=== PATIENT | male | born 1950 | race Caucasian/White ===

== ENCOUNTER 2017-02-26 07:28 | Inpatient (IN) | payer BC, OTHER ==
[~2017-02-26] VITALS: Ht 188 cm; Wt 128.0 kg
[2017-02-26] VITALS (7 sets, daily range): BP systolic 123–151; BP diastolic 73–98; PULSE 71–90; TEMP 36.3–36.5; O2SAT 96–97; Ht 188 cm; Wt 128.0 kg
[2017-02-26] MEDS ORDERED: SODIUM CHLORIDE 0.9% 1000ML 1,000 ML IV ONE (07:33)
--- NOTE | 2017-02-26 07:36 | EMERGENCY ROOM VISIT NOTE ---
History Report prepared by Shorty: Deedee Bach Under the Supervision of: Dr. Ced Hale M.D. First contact with patient: 07:29 Chief Complaint: ILLNESS Stated Complaint: ILLNESS History of Present Illness The patient is a 66 year old male who presents to the Emergency Room with complaints of a persistent illness that began prior to arrival. Per EMS, the patient had a colonoscopy done two days ago. EMS reports that the patient was found shivering in his bathroom by his . The patient states that he has been experiencing dizziness and lightheadedness. He states that he has been feeling bloated. The patient denies any history of smoking or heart disease. Source of History: patient, EMS Onset: prior to arrival Position: other (global) Quality: other (illness) Timing: other (persistent) Note: Associated Symptoms: dizziness and lightheadedness, shivering Review of Systems See HPI for pertinent positives & negatives. A total of 10 systems reviewed and were otherwise negative. Past Medical & Surgical Surgical Problems: (1) H/O artificial lens replacement (2) H/O colonoscopy (3) H/O colonoscopy Family History No pertinent family history stated. Social History Marital Status: Housing Status: lives with significant other Occupation Status: employed Current/Historical Medications No Active Prescriptions or Reported Meds Allergies Coded Allergies: No Known Allergies (Verified , 02/26/17) Physical Exam Vital Signs Date Time Temp Pulse Resp B/P (MAP) Pulse Ox O2 Delivery O2 Flow Rate FiO2 02/26/17 10:13 70 19 99 02/26/17 09:58 71 21 96 02/26/17 09:43 71 16 96 02/26/17 09:35 68 18 127/83 98 Room Air 02/26/17 09:35 127/83 02/26/17 09:28 72 15 02/26/17 09:13 69 15 02/26/17 08:58 72 21 90 02/26/17 08:43 74 24 95 02/26/17 08:31 101/66 02/26/17 08:31 74 18 101/66 98 Room Air 02/26/17 08:13 71 11 95 02/26/17 07:58 76 17 93 02/26/17 07:43 78 19 02/26/17 07:39 80 02/26/17 07:38 36.4 82 20 107/65 95 Room Air 02/26/17 07:37 95 Room Air 02/26/17 07:34 107/65 Physical Exam GENERAL: Patient is a pale, ill appearing, diaphoretic male. HEAD: Normocephalic atraumatic EYES: Ocular movements intact pupils equal and react to light OROPHARYNX mucous membranes are moist no exudates present no erythema or edema present NECK: Supple no nuchal rigidity CHEST: Good equal expansion LUNGS: Clear and equal to auscultation CARDIAC: Normal S1 and S2 ABDOMEN: Soft nontender no guarding BACK: No CVA tenderness EXTREMITIES: No pain upon palpation normal muscle strength in all groups no clubbing cyanosis or edema NEURO: Patient is following commands and answering questions appropriately. Alert and oriented x3 Cranial Nerves 2-12 grossly intact Medical Decision & Procedures ER Provider Diagnostic Interpretation: Radiology results as stated below per my review and radiologist interpretation: CHEST ONE VIEW PORTABLE CLINICAL HISTORY: Sepsis dyspnea COMPARISON STUDY: No previous studies for comparison. FINDINGS: The bones soft tissues and hemidiaphragms are normal. The cardiomediastinal silhouette is normal. The lungs are clear. The pulmonary vasculature is normal. Poorly defined mild bibasilar parenchymal infiltrative change. IMPRESSION: Poorly defined bibasilar parenchymal infiltrate. The above report was generated using voice recognition software. It may contain grammatical, syntax or spelling errors. Electronically signed by: Dereje Gore M.D. 02/26/2017 8:17 AM Dictated Date/Time: 02/26/2017 8:16 AM ADDENDUM Addendum: Upon further review, note is made of slight indistinctness of the anterior wall of the proximal transverse colon with possible minimal pericolonic infiltration. There is no free air. A colonic injury is considered unlikely but would be difficult to exclude, particularly if recent intervention at this location. If progressive abdominal pain, short-term follow-up CT is recommended. Findings discussed with Dr. Hale at time of dictation. Electronically signed by: Sheldon Haynes M.D. 02/26/2017 9:45 AM Dictated Date/Time: 02/26/2017 9:[address] OF THE ABDOMEN AND PELVIS WITH CONTRAST CLINICAL HISTORY: Colonoscopy. Fever. COMPARISON STUDY: None. TECHNIQUE: Following IV administration of 93 mL of Optiray-320, axial images of the abdomen and pelvis were obtained from the lung bases to the proximal femurs. Images were reviewed in the axial, sagittal, and coronal planes. IV contrast was administered without complication. A dose lowering technique was utilized adhering to the principles of ALARA. CT DOSE: 1166.87 mGy.cm FINDINGS: Visualized portions of the lower chest demonstrate a trace pericardial effusion. There are multiple old right-sided rib fractures. No pneumatosis, free air or portal venous gas is noted. Nodularity of both adrenal glands is benign. The liver, spleen and pancreas are unremarkable as is the right kidney. Note is made of a 2.6 cm water attenuation left renal lesion consistent with a cyst. A few subcentimeter left renal lesions are too small to characterize. Submucosal fat deposition of the colon is chronic. There is an endoscopic clip within the cecum. The appendix is normal. There is colonic diverticulosis without evidence for acute diverticulitis. The bladder is collapsed. No suspicious osseous lesions are present. Note is made of a bilobed infrarenal abdominal aortic aneurysm. The superior component measures 5.3 x 4.4 cm and the inferior component measures 4.8 x 4 cm. There is no evidence for rupture. There is extensive atherosclerotic plaque of the abdominal aorta and branch vessels. Note is made of a 9.3 x 5.2 x 3 cm fluid collection along the fascia of the lateral left thigh. This is likely chronic. There is no lymphadenopathy. IMPRESSION: 1. No acute process within the abdomen or pelvis. No free air. Endoscopic clip within the cecum. Extensive submucosal fat deposition which suggests chronic inflammation. No free air. 2. Bilobed infrarenal abdominal aortic aneurysm. Superior component measures 5.3 x 4.4 cm and inferior component measures 4.8 x 4 cm. No rupture. 3. 9.3 x 5.2 x 3 cm hypodensity along the fascia of the lateral left thigh. This is indeterminate although likely reflects a fluid collection and may be chronic, related to previous trauma. 4. Trace pericardial effusion. Electronically signed by: Sheldon Haynes M.D. 02/26/2017 8:59 AM Dictated Date/Time: 02/26/2017 8:28 AM Laboratory Results 02/26/17 07:34 Red Blood Count 3.85, Mean Corpuscular Volume 94.3, Mean Corpuscular Hemoglobin 31.7, Mean Corpuscular Hemoglobin Concent 33.6, Mean Platelet Volume 11.7, Neutrophils (%) (Auto) 65.2, Lymphocytes (%) (Auto) 26.6, Monocytes (%) (Auto) 6.4, Eosinophils (%) (Auto) 0.9, Basophils (%) (Auto) 0.3, Neutrophils # (Auto) 9.89, Lymphocytes # (Auto) 4.03, Monocytes # (Auto) 0.97, Eosinophils # (Auto) 0.13, Basophils # (Auto) 0.05 02/26/17 07:34 Test 02/26/17 07:33 02/26/17 07:34 02/26/17 08:04 02/26/17 08:08 White Blood Count 15.16 K/uL (4.8-10.8) Red Blood Count 3.85 M/uL (4.7-6.1) Hemoglobin 12.2 g/dL (14.0-18.0) Hematocrit 36.3 % (42-52) Mean Corpuscular Volume 94.3 fL (80-100) Mean Corpuscular Hemoglobin 31.7 pg (25-34) Mean Corpuscular Hemoglobin Concent 33.6 g/dl (32-36) Platelet Count 289 K/uL (130-400) Mean Platelet Volume 11.7 fL (7.4-10.4) Neutrophils (%) (Auto) 65.2 % Lymphocytes (%) (Auto) 26.6 % Monocytes (%) (Auto) 6.4 % Eosinophils (%) (Auto) 0.9 % Basophils (%) (Auto) 0.3 % Neutrophils # (Auto) 9.89 K/uL (1.4-6.5) Lymphocytes # (Auto) 4.03 K/uL (1.2-3.4) Monocytes # (Auto) 0.97 K/uL (0.11-0.59) Eosinophils # (Auto) 0.13 K/uL (0-0.5) Basophils # (Auto) 0.05 K/uL (0-0.2) RDW Standard Deviation 50.0 fL (36.4-46.3) RDW Coefficient of Variation 14.7 % (11.5-14.5) Immature Granulocyte % (Auto) 0.6 % Immature Granulocyte # (Auto) 0.09 K/uL (0.00-0.02) Prothrombin Time 11.2 SECONDS (9.0-12.0) Prothromb Time International Ratio 1.0 (0.9-1.1) Activated Partial Thromboplast Time 28.8 SECONDS (21.0-31.0) Partial Thromboplastin Ratio 1.1 Est Creatinine Clear Calc Drug Dose 67.1 ml/min Estimated GFR () 53.6 Estimated GFR (Non- 46.3 BUN/Creatinine Ratio 18.1 (10-20) Estimated Average Glucose 117 mg/dl Hemoglobin A1c 5.7 % (4.5-5.6) Calcium Level 8.6 mg/dl (8.5-10.1) Total Bilirubin 0.3 mg/dl (0.2-1) Aspartate Amino Transf (AST/SGOT) 13 U/L (15-37) Alanine Aminotransferase (ALT/SGPT) 24 U/L (12-78) Alkaline Phosphatase 53 U/L (45-117) Total Creatine Kinase 84 U/L (39-308) Total Protein 6.7 gm/dl (6.4-8.2) Albumin 3.1 gm/dl (3.4-5.0) Globulin 3.6 gm/dl (2.5-4.0) Albumin/Globulin Ratio 0.9 (0.9-2) Procalcitonin 0.07 ng/ml (0-0.5) Bedside Lactic Acid Venous 1.41 mmol/L (0.90-1.70) Bedside Hemoglobin 11.9 g/dl (14.0-18.0) Bedside Hematocrit 35 % (42-52) Bedside Sodium 139 mEq/L (135-144) Bedside Potassium 4.4 mEq/L (3.3-5.0) Bedside Chloride 104 mEq/L (101-112) Bedside Total CO2 22 mEq/l (24-31) Anion Gap 18.0 mmol/L (16-25) Bedside Blood Urea Nitrogen 27 mg/dl (7-18) Bedside Creatinine 1.5 mg/dl (0.6-1.3) Bedside Glucose (other) 167 mg/dl (70-99) Bedside Ionized Calcium (Kiah) 1.18 mmol/l (1.12-1.32) Test 02/26/17 09:50 Influenza Type A (RT-PCR) Neg for Influ A (NEG) Influenza Type B (RT-PCR) Neg for Influ B (NEG) Labs reviewed by ED physician. Medications Administered Medications (Trade) Dose Ordered Sig/Linda Route Start Time Stop Time Status Last Admin Dose Admin Sodium Chloride 1,000 ml @ 999 mls/hr Q1H1M ONCE IV 02/26/17 07:33 02/26/17 08:33 DC 02/26/17 07:59 999 MLS/HR Vancomycin HCl 1000 mg/Sodium Chloride 270 ml @ 125 mls/hr NOW STAT IV 02/26/17 08:18 02/26/17 10:27 DC 02/26/17 08:46 125 MLS/HR Sodium Chloride 1,000 ml @ 999 mls/hr Q1H1M STAT IV 02/26/17 08:21 02/26/17 09:21 DC 02/26/17 08:46 999 MLS/HR Cefepime HCl 2000 mg/Syringe 20 ml @ 5 mls/min TODAY@0818 IV 02/26/17 08:18 02/26/17 08:35 DC 02/26/17 08:46 5 MLS/MIN Nicotine (Nicoderm Cq 21MG Patch) 1 patch NOW STAT TD 02/26/17 09:21 02/26/17 09:22 DC 02/26/17 09:35 1 PATCH ECG Indication: other (illness) Rate (beats per minute): 80 Rhythm: normal sinus Findings: no acute ischemic change, prolonged QT, no ectopy ED Course 0730: Past medical records reviewed. The patient was evaluated in room B12B. A complete history and physical examination was performed. 0733: Ordered Sodium Chloride 1000 ml @ 999 mls/hr IV. 0818: Ordered Cefepime HCl 2000 mg/Syringe 20 ml @ 5 mls/min IV, Vancomycin HCl 1000 mg/Sodium Chloride 270 ml @ 125 mls/hr IV. 0821: Ordered Sodium Chloride 1000 ml @ 999 mls/hr IV. 0915: I reevaluated the patient and he is resting. I discussed the test results with him and I discussed the treatment plan. He verbalized complete understanding and agreement. He is going to be evaluated for further treatment. 0921: Ordered Nicotine 1 patch TD. 0933: I discussed the patients case with Phi Huggins. She is going to evaluate the patient for further treatment. 0944: I spoke to Dr. Haynes, Radiology regarding the patient. 0953: I discussed the patients case with Bonnie Tyson. She states that she will come see the patient. Medical Decision Differential diagnosis: Etiologies such as appendicitis, diverticulitis, PUD, biliary pathology, UTI, pancreatitis, obstruction, mesenteric ischemia, aortic pathology, infections, inflammatory bowel disease, renal colic, as well as others were entertained. This is a 66-year-old male who presents emergency department complaining of syncope. Upon arrival to emergency department the patient is pale in appearance and diaphoretic. Based on these findings an IV was established, patient given normal saline bolus and started on antibiotics. The patient has multiple comorbidities including a AAA. Repeat examination after the fluid administration revealed improvement in the patient's symptoms. I did discuss the case with the patient's hospitalist service as well as the gastroenterology service due to the patient's recent colonoscopy. Patient was in agreement with the treatment plan. Medication Reconcilliation Current Medication List: was personally reviewed by me Blood Pressure Screening Patient's blood pressure: Normal blood pressure Blood pressure disposition: Did not require urgent referral Consults Time Called: 919 Consulting Physician: Phi Huggins Returned Call: 09 I discussed the patients case with Phi Huggins. She is going to evaluate the patient for further treatment. Additional Consults: Time Called: 944 Consulted Physician: Bonnie Tyson Returned Call: 0900 Additional Comments: I discussed the patients case with Bonnie Tyson. She states that she will come see the patient. Impression Primary Impression: Pneumonia Additional Impression: Syncope Scribe Attestation The scribe's documentation has been prepared under my direction and personally reviewed by me in its entirety. I confirm that the note above accurately reflects all work, treatment, procedures, and medical decision making performed by me. Departure Information Dispostion Being Evaluated By Hospitalist Prescriptions No Active Prescriptions or Reported Meds Problem Qualifiers Primary Impression: Pneumonia Pneumonia type: due to unspecified organism Laterality: unspecified laterality Lung location: unspecified part of lung Qualified Codes: J18.9 - Pneumonia, unspecified organism Additional Impression: Syncope Syncope type: unspecified Qualified Codes: R55 - Syncope and collapse
[2017-02-26] MEDS ORDERED: OPTIRAY 320 IV PRN (07:45)
[2017-02-26 08:12] LABS: BASO % 0.3 %; BASO ABS # 0.05 K/uL (0-0.2); COMPLETE YES; EOS % 0.9 %; HEMATOCRIT 36.3 % (42-52); IG% 0.6 %; LYMPH % 26.6 %; LYMPH ABS # 4.03 K/uL (1.2-3.4); MEAN CELL VOLUME 94.3 fL (80-100); MEAN CORPUSCULAR HEMOGLOBIN 31.7 pg (25-34); MEAN CORPUSCULAR HGB CONC 33.6 g/dl (32-36); MEAN PLATELET VOLUME 11.7 fL (7.4-10.4); MONO % 6.4 %; NEUT % 65.2 %; PLATELET COUNT 289 K/uL (130-400); RED BLOOD COUNT 3.85 M/uL (4.7-6.1); WHITE BLOOD COUNT 15.16 K/uL (4.8-10.8)
[2017-02-26] MEDS ORDERED: CEFEPIME IV 2,000 MG in SYRINGE 7.5 ML IV SCH (08:18)
[2017-02-26] MEDS ORDERED: CEFEPIME IV 2,000 MG in DEXTROSE 5% 100ML 100 ML IV STA (08:18)
[2017-02-26] MEDS ORDERED: VANCOMYCIN INJ 1,000 MG in SODIUM CHLORIDE 0.9% 250ML 250 ML IV STA (08:18)
--- NOTE | 2017-02-26 08:18 | DIAGNOSTIC IMAGING REPORT ---
CHEST ONE VIEW PORTABLE CLINICAL HISTORY: Sepsis dyspnea COMPARISON STUDY: No previous studies for comparison. FINDINGS: The bones soft tissues and hemidiaphragms are normal. The cardiomediastinal silhouette is normal. The lungs are clear. The pulmonary vasculature is normal. Poorly defined mild bibasilar parenchymal infiltrative change. IMPRESSION: Poorly defined bibasilar parenchymal infiltrate. The above report was generated using voice recognition software. It may contain grammatical, syntax or spelling errors. Electronically signed by: Dereje Gore M.D. 02/26/2017 8:17 AM Dictated Date/Time: 02/26/2017 8:16 AM
[2017-02-26 08:21] LABS: ISTAT CREATININE 1.5 mg/dl (0.6-1.3); ISTAT HEMOGLOBIN 11.9 g/dl (14.0-18.0); ISTAT IONIZED CALCIUM 1.18 mmol/l (1.12-1.32)
[2017-02-26] MEDS ORDERED: SODIUM CHLORIDE 0.9% 1000ML 1,000 ML IV STA (08:21)
[2017-02-26 08:23] LABS: PARTIAL THROMBOPLASTIN RATIO 1.1; PROTHROMBIN TIME (PATIENT) 11.2 SECONDS (9.0-12.0)
[2017-02-26 08:30] LABS: ALT/SGPT 24 U/L (12-78); BLOOD UREA NITROGEN 28 mg/dl (7-18); BUN/CREATININE RATIO 18.1 (10-20); CALCIUM 8.6 mg/dl (8.5-10.1); CARBON DIOXIDE 25 mmol/L (21-32); CHLORIDE 106 mmol/L (98-107); CREATININE 1.56 mg/dl (0.60-1.40); GLUCOSE 162 mg/dl (70-99); POTASSIUM 4.4 mmol/L (3.5-5.1); SODIUM 139 mmol/L (136-145)
[2017-02-26 08:35] LABS: ALB/GLOB RATIO 0.9 (0.9-2); ALKALINE PHOSPHATASE 53 U/L (45-117); AST/SGOT 13 U/L (15-37)
--- NOTE | 2017-02-26 09:00 | DIAGNOSTIC IMAGING REPORT ---
ADDENDUM Addendum: Upon further review, note is made of slight indistinctness of the anterior wall of the proximal transverse colon with possible minimal pericolonic infiltration. There is no free air. A colonic injury is considered unlikely but would be difficult to exclude, particularly if recent intervention at this location. If progressive abdominal pain, short-term follow-up CT is recommended. Findings discussed with Dr. Hale at time of dictation. Electronically signed by: Sheldon Haynes M.D. 02/26/2017 9:45 AM Dictated Date/Time: 02/26/2017 9:[address] OF THE ABDOMEN AND PELVIS WITH CONTRAST CLINICAL HISTORY: Colonoscopy. Fever. COMPARISON STUDY: None. TECHNIQUE: Following IV administration of 93 mL of Optiray-320, axial images of the abdomen and pelvis were obtained from the lung bases to the proximal femurs. Images were reviewed in the axial, sagittal, and coronal planes. IV contrast was administered without complication. A dose lowering technique was utilized adhering to the principles of ALARA. CT DOSE: 1166.87 mGy.cm FINDINGS: Visualized portions of the lower chest demonstrate a trace pericardial effusion. There are multiple old right-sided rib fractures. No pneumatosis, free air or portal venous gas is noted. Nodularity of both adrenal glands is benign. The liver, spleen and pancreas are unremarkable as is the right kidney. Note is made of a 2.6 cm water attenuation left renal lesion consistent with a cyst. A few subcentimeter left renal lesions are too small to characterize. Submucosal fat deposition of the colon is chronic. There is an endoscopic clip within the cecum. The appendix is normal. There is colonic diverticulosis without evidence for acute diverticulitis. The bladder is collapsed. No suspicious osseous lesions are present. Note is made of a bilobed infrarenal abdominal aortic aneurysm. The superior component measures 5.3 x 4.4 cm and the inferior component measures 4.8 x 4 cm. There is no evidence for rupture. There is extensive atherosclerotic plaque of the abdominal aorta and branch vessels. Note is made of a 9.3 x 5.2 x 3 cm fluid collection along the fascia of the lateral left thigh. This is likely chronic. There is no lymphadenopathy. IMPRESSION: 1. No acute process within the abdomen or pelvis. No free air. Endoscopic clip within the cecum. Extensive submucosal fat deposition which suggests chronic inflammation. No free air. 2. Bilobed infrarenal abdominal aortic aneurysm. Superior component measures 5.3 x 4.4 cm and inferior component measures 4.8 x 4 cm. No rupture. 3. 9.3 x 5.2 x 3 cm hypodensity along the fascia of the lateral left thigh. This is indeterminate although likely reflects a fluid collection and may be chronic, related to previous trauma. 4. Trace pericardial effusion. Electronically signed by: Sheldon Haynes M.D. 02/26/2017 8:59 AM Dictated Date/Time: 02/26/2017 8:28 AM
[2017-02-26] MEDS ORDERED: NICOTINE 21 MG/24 HR TDSY TD STA (09:21)
[2017-02-26] MEDS ORDERED: ONDANSETRON INJ 2 MG/ML 2 ML VIAL IV PRN (10:30)
[2017-02-26] MEDS ORDERED: ACETAMINOPHEN 325 MG TAB PO PRN (10:30)
[2017-02-26] MEDS ORDERED: PIPERACILL/TAZOBAC CONSULT ACTIVE PRN (10:45)
[2017-02-26] MEDS ORDERED: VANCOMYCIN CONSULT ACTIVE PRN (10:45)
[2017-02-26 10:56] LABS: INFLUENZA A PCR Neg for Influ A (NEG); INFLUENZA B PCR Neg for Influ B (NEG)
--- NOTE | 2017-02-26 10:56 | DIAGNOSTIC IMAGING REPORT ---
HEAD WITHOUT CONTRAST (CT) CLINICAL HISTORY: 66 years-old Male with syncope. Acute syncope TECHNIQUE: Multiple axial CT images of the head were obtained without contrast. A dose lowering technique was utilized adhering to the principles of ALARA. CT DOSE: 634.23 mGy.cm COMPARISON: None. FINDINGS: No acute intracranial hemorrhage, midline shift, intracranial mass, hydrocephalus, territorial ischemia or abnormal extra-axial collection. Mild brain atrophy. Mild chronic microvascular ischemic changes are suggested. The calvarium is intact. Trace right mastoid effusion. No left mastoid effusion. Mild rightward bowing and spurring of nasal septum. Mild mucosal thickening of the left maxillary and ethmoid sinuses. Prior bilateral cataract repair. IMPRESSION: No acute intracranial abnormality. The above report was generated using voice recognition software. It may contain grammatical, syntax or spelling errors. Electronically signed by: Thomas Ellis M.D. 02/26/2017 10:55 AM Dictated Date/Time: 02/26/2017 10:51 AM
--- NOTE | 2017-02-26 11:06 | Gastrointestinal Consultation ---
Gastrointestinal Consultation Date of Consultation: Feb 26, 2017 Attending Physician: Leroy Consulting Physician: Herman Reason for Consultation: GIB, hx polypectomy on colonoscopy History of Present Illness Patient is a 66 year old male w/ history HTN, AAA who presents through the ED following a syncopal event. Pt was seen and evaluated, chart reviewed. is at bedside. Pt notes colonoscopy 02/21 for colon CA screening. Found to have numerous polyps, removed w/ hot snare and clip placement x 2. Also with large polyp (TVA vs malignancy) biopsy pending, tattooed. He notes since colonoscopy, he has been having abdominal pressure and rectal bleeding. Was having formed stools x 2 days, with some BRB and had been feeling well. Sunday, bleeding worsened, associated with some clots, and he noted some lightheadedness, dizziness, fever, chills. This AM w/ syncopal episode in bathroom. notes a lot of BRBPR. IVF and ABX in the ED w/ resolution of fever, chills, lightheadedness, dizziness. Last episodes of bleeding was prior to arrival. On ED arrival, he was hypotensive, w/ pulse 82. Afebrile. WBC 15, H&H 12&35. 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 LFTs ok. 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 Cannot be removed endoscopically. Many 4-10 mm polyps in the transverse colon, removed with hot snare, clip placed. Three 4-9 mm polyps in transverse colon removed with not snare, clip placed. One 18 mm polyp in the rectum. One 7 mm polyp removed from rectum. Repeat colonoscopy due to fair prep , refer to general surgery when pathology returns Chest XR 02/26/17: The bones soft tissues and hemidiaphragms are normal. The cardiomediastinal silhouette is normal. The lungs are clear. The pulmonary vasculature is normal. Poorly defined mild bibasilar parenchymal infiltrative change. CT ABD/Pelvis 02/26/17: No acute process within the abdomen or pelvis. No free air. Endoscopic clip within the cecum. Extensive submucosal fat deposition which suggests chronic inflammation. No free air. Bilobed infrarenal abdominal aortic aneurysm. Superior component measures 5.3 x 4.4 cm and inferior component measures 4.8 x 4 cm. No rupture. 3. 9.3 x 5.2 x 3 cm hypodensity along the fascia of the lateral left thigh. This is indeterminate although likely reflects a fluid collection and may be chronic, related to previous trauma. Trace pericardial effusion. Upon further review, note is made of slight indistinctness of the anterior wall of the proximal transverse colon with possible minimal pericolonic infiltration. There is no free air. A colonic injury is considered unlikely but would be difficult to exclude, particularly if recent intervention at this location. If progressive abdominal pain, short- term follow-up CT is recommended. Past Medical/Surgical History fever, chills, abd pain, rectal bleeding, cough Past Medical History: HTN, colon polyp Past Surgical History: bilateral lens replacement, colonoscopy, dental procedure Social History Smoking Status: Current Every Day Smoker Marital Status: Housing Status: lives with significant other Occupation Status: employed Allergies Coded Allergies: No Known Allergies (Verified , 02/26/17) Current Medications Home Meds and Scripts Medications Dose Route/Sig Max Daily Dose Days Date Category No Active Prescriptions or Reported Medications Rx Review of Systems Constitutional: No fever, No chills Respiratory: No cough, No shortness of breath Cardiac: No chest pain, No edema Abdomen: + pain, + GI bleeding, No nausea, No vomiting, No diarrhea, No constipation Physical Exam Date Time Temp Pulse Resp B/P (MAP) Pulse Ox O2 Delivery O2 Flow Rate FiO2 02/26/17 09:35 68 18 127/83 98 Room Air 02/26/17 08:31 74 18 101/66 98 Room Air 02/26/17 07:39 80 02/26/17 07:38 36.4 82 20 107/65 95 Room Air 02/26/17 07:37 95 Room Air General Appearance: no apparent distress Eyes: PERRL ENT: hearing grossly normal Neck: supple Respiratory/Chest: lungs clear, normal breath sounds Cardiovascular: regular rate, rhythm Abdomen: normal bowel sounds, soft, no organomegaly Neurologic/Psych: alert, normal mood/affect, oriented x 3 Skin: normal color, no jaundice, warm/dry Laboratory Results Last 24 Hours Test 02/26/17 07:33 02/26/17 07:34 02/26/17 08:04 02/26/17 08:08 White Blood Count 15.16 K/uL Red Blood Count 3.85 M/uL Hemoglobin 12.2 g/dL Hematocrit 36.3 % Mean Corpuscular Volume 94.3 fL Mean Corpuscular Hemoglobin 31.7 pg Mean Corpuscular Hemoglobin Concent 33.6 g/dl Platelet Count 289 K/uL Mean Platelet Volume 11.7 fL Neutrophils (%) (Auto) 65.2 % Lymphocytes (%) (Auto) 26.6 % Monocytes (%) (Auto) 6.4 % Eosinophils (%) (Auto) 0.9 % Basophils (%) (Auto) 0.3 % Neutrophils # (Auto) 9.89 K/uL Lymphocytes # (Auto) 4.03 K/uL Monocytes # (Auto) 0.97 K/uL Eosinophils # (Auto) 0.13 K/uL Basophils # (Auto) 0.05 K/uL RDW Standard Deviation 50.0 fL RDW Coefficient of Variation 14.7 % Immature Granulocyte % (Auto) 0.6 % Immature Granulocyte # (Auto) 0.09 K/uL Prothrombin Time 11.2 SECONDS Prothromb Time International Ratio 1.0 Activated Partial Thromboplast Time 28.8 SECONDS Partial Thromboplastin Ratio 1.1 Sodium Level 139 mmol/L Potassium Level 4.4 mmol/L Chloride Level 106 mmol/L Carbon Dioxide Level 25 mmol/L Anion Gap 8.0 mmol/L 18.0 mmol/L Blood Urea Nitrogen 28 mg/dl Creatinine 1.56 mg/dl Est Creatinine Clear Calc Drug Dose 67.1 ml/min Estimated GFR () 53.6 Estimated GFR (Non- 46.3 BUN/Creatinine Ratio 18.1 Random Glucose 162 mg/dl Calcium Level 8.6 mg/dl Total Bilirubin 0.3 mg/dl Aspartate Amino Transf (AST/SGOT) 13 U/L Alanine Aminotransferase (ALT/SGPT) 24 U/L Alkaline Phosphatase 53 U/L Total Creatine Kinase 84 U/L Creatine Kinase MB 2.5 ng/ml Creatine Kinase MB Ratio 3.0 Troponin I < 0.015 ng/ml Total Protein 6.7 gm/dl Albumin 3.1 gm/dl Globulin 3.6 gm/dl Albumin/Globulin Ratio 0.9 Procalcitonin 0.07 ng/ml Bedside Lactic Acid Venous 1.41 mmol/L Bedside Hemoglobin 11.9 g/dl Bedside Hematocrit 35 % Bedside Sodium 139 mEq/L Bedside Potassium 4.4 mEq/L Bedside Chloride 104 mEq/L Bedside Total CO2 22 mEq/l Bedside Blood Urea Nitrogen 27 mg/dl Bedside Creatinine 1.5 mg/dl Bedside Glucose (other) 167 mg/dl Bedside Ionized Calcium (Kiah) 1.18 mmol/l Test 02/26/17 09:50 02/26/17 10:32 Impression Patient is a 66 year old male w/ fever, chills, lightheadedness, dizziness, abdominal pain and rectal bleeding follow colonoscopy w/ multiple polyps removed on 02/21/17. CT w/ indistinctness of the anterior wall of the proximal transverse colon with possible minimal pericolonic infiltration, there is no free air. Reviewed w/ radiology who feel edema is secondary to colonoscopy w/ polypectomy, and stress no free air. Suggest if symptoms persist, worsen to repeat CT. 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 Plan Trend H&H Monitor stools Transfuse PRN NPO for bowel rest IVF for fluid resuscitation Cipro/Flagyl Follow up pathology from colonoscopy Repeat CT abd/pelvis if symptoms persist Additional management per cardiology and primary team GI to follow, please call with questions or concerns I saw and evaluated the patient. He presented to the emergency Department after having a syncopal episode at home. He underwent a colonoscopy 5 days ago with removal of multiple colonic polyps. He was also found to have a large mass in the ascending colon. He presented with several episodes of hematochezia over the last 72 hours. He reports that his last episode of hematochezia was last evening prior to admission. Patient also admits to epigastric discomfort localizing to the left hand side. PE: NAD, ABD: LUQ tenderness Impression: Patient is status post colonoscopy with removal of multiple polyps. Given the white count and tenderness one possibility would be post- polypectomy syndrome. I would recommend empiric coverage with broad-spectrum antibiotic. The hematochezia could be related to a polypectomy as well. I would suggest that we begin a bowel preparation this afternoon and if the patient continues to have hematochezia we will proceed with a colonoscopy tomorrow if the bleeding has discontinued we would hold on a repeat exam due to his other comorbid conditions and recent evaluation notable for a large aortic aneurysm
[2017-02-26 12:54] LABS: ESTIMATED AVERAGE GLUCOSE 117 mg/dl; HA1C FLAG Normal (Normal)
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
[2017-02-26] MEDS ORDERED: PIPERACILL/TAZOBAC IV 4.5 GM in DEXTROSE 5% 100ML IV ONE (14:00)
[2017-02-26] MEDS: VANCOMYCIN INJ 1,500 MG in SODIUM CHLORIDE 0.9% 500ML 500 ML IV SCH (14:11)
[2017-02-26] MEDS: SODIUM CHLORIDE 0.9% 1000ML 1,000 ML IV SCH (14:11)
--- NOTE | 2017-02-26 14:12 | Pharmacy Progress Note ---
Pharmacy Antibiotic Consult Date of Service: Feb 26, 2017. Pharmacy Dosing Scope Pharmacy is consulted to initiate Vancomycin and Zosyn IV dosing therapy, order appropriate labs and adjust drug dose/frequency. Subjective The patient is a 66 year old male admitted on Feb 26, 2017 after a syncopal event at home. Pt is s/p colonoscopy on 02/21 where polyps were removed and clips placed. Pt reports bleeding with each bm, lightheadedness and dizziness x 2 days. Objective Height (Feet): 6 Height (Inches): 2.00 Weight (Kilograms): 124.500 Lab Results (24hrs): Test 02/26/17 07:33 02/26/17 07:34 02/26/17 08:04 02/26/17 08:08 White Blood Count 15.16 K/uL (4.8-10.8) Red Blood Count 3.85 M/uL (4.7-6.1) Hemoglobin 12.2 g/dL (14.0-18.0) Hematocrit 36.3 % (42-52) Mean Corpuscular Volume 94.3 fL (80-100) Mean Corpuscular Hemoglobin 31.7 pg (25-34) Mean Corpuscular Hemoglobin Concent 33.6 g/dl (32-36) Platelet Count 289 K/uL (130-400) Mean Platelet Volume 11.7 fL (7.4-10.4) Neutrophils (%) (Auto) 65.2 % Lymphocytes (%) (Auto) 26.6 % Monocytes (%) (Auto) 6.4 % Eosinophils (%) (Auto) 0.9 % Basophils (%) (Auto) 0.3 % Neutrophils # (Auto) 9.89 K/uL (1.4-6.5) Lymphocytes # (Auto) 4.03 K/uL (1.2-3.4) Monocytes # (Auto) 0.97 K/uL (0.11-0.59) Eosinophils # (Auto) 0.13 K/uL (0-0.5) Basophils # (Auto) 0.05 K/uL (0-0.2) RDW Standard Deviation 50.0 fL (36.4-46.3) RDW Coefficient of Variation 14.7 % (11.5-14.5) Immature Granulocyte % (Auto) 0.6 % Immature Granulocyte # (Auto) 0.09 K/uL (0.00-0.02) Prothrombin Time 11.2 SECONDS (9.0-12.0) Prothromb Time International Ratio 1.0 (0.9-1.1) Activated Partial Thromboplast Time 28.8 SECONDS (21.0-31.0) Partial Thromboplastin Ratio 1.1 Sodium Level 139 mmol/L (136-145) Potassium Level 4.4 mmol/L (3.5-5.1) Chloride Level 106 mmol/L (98-107) Carbon Dioxide Level 25 mmol/L (21-32) Anion Gap 8.0 mmol/L (3-11) 18.0 mmol/L (16-25) Blood Urea Nitrogen 28 mg/dl (7-18) Creatinine 1.56 mg/dl (0.60-1.40) Est Creatinine Clear Calc Drug Dose 67.1 ml/min Estimated GFR () 53.6 Estimated GFR (Non- 46.3 BUN/Creatinine Ratio 18.1 (10-20) Random Glucose 162 mg/dl (70-99) Estimated Average Glucose 117 mg/dl Hemoglobin A1c 5.7 % (4.5-5.6) Calcium Level 8.6 mg/dl (8.5-10.1) Total Bilirubin 0.3 mg/dl (0.2-1) Aspartate Amino Transf (AST/SGOT) 13 U/L (15-37) Alanine Aminotransferase (ALT/SGPT) 24 U/L (12-78) Alkaline Phosphatase 53 U/L (45-117) Total Creatine Kinase 84 U/L (39-308) Creatine Kinase MB 2.5 ng/ml (0.5-3.6) Creatine Kinase MB Ratio 3.0 (0-3.0) Troponin I < 0.015 ng/ml (0-0.045) Total Protein 6.7 gm/dl (6.4-8.2) Albumin 3.1 gm/dl (3.4-5.0) Globulin 3.6 gm/dl (2.5-4.0) Albumin/Globulin Ratio 0.9 (0.9-2) Procalcitonin 0.07 ng/ml (0-0.5) Bedside Lactic Acid Venous 1.41 mmol/L (0.90-1.70) Bedside Hemoglobin 11.9 g/dl (14.0-18.0) Bedside Hematocrit 35 % (42-52) Bedside Sodium 139 mEq/L (135-144) Bedside Potassium 4.4 mEq/L (3.3-5.0) Bedside Chloride 104 mEq/L (101-112) Bedside Total CO2 22 mEq/l (24-31) Bedside Blood Urea Nitrogen 27 mg/dl (7-18) Bedside Creatinine 1.5 mg/dl (0.6-1.3) Bedside Glucose (other) 167 mg/dl (70-99) Bedside Ionized Calcium (Kiah) 1.18 mmol/l (1.12-1.32) Test 02/26/17 09:50 02/26/17 13:30 Influenza Type A (RT-PCR) Neg for Influ A (NEG) Influenza Type B (RT-PCR) Neg for Influ B (NEG) Creatine Kinase MB Ratio (0-3.0) Assessment & Plan Assessment Pt being treated with Zosyn and Vanc for pneumonia ( possible aspiration during recent procedure). Pt at risk for health-care associated organisms due recent procedure on 02/21. Blood cultures drawn on 02/26. Vancomycin Goal trough 15-20 mcg/mL for pneumonia Estimated pk parameters used: ke=0.060 t1/2=11.5hrs Vd=0.6 Pt received 1 gm in the ER. Will use 12mg/kg for maintenance dosing due to the patients obesity and likelihood of accumulation. Based on scr level of 1.6 it is possible he is experiencing SABI. Dosing will be adjusted with improvement or further decline of kidney function. Zosyn Dosing at higher range of 4.5gm due to the patient's BMI of 35.2. Plan Vancomycin * 1.5gm q 14 hours * Trough level ordered for 02/28 @0730 Zosyn * 4.5gm iv x 1 over 30 min * then 4.5gm q 8 hours (EI) Pharmacy will continue to follow and will adjust dose/frequency as necessary. Thank you
[2017-02-26 15:31] LABS: HEMATOCRIT 31.1 % (42-52)
--- NOTE | 2017-02-26 15:57 | DIAGNOSTIC IMAGING REPORT ---
ULTRASOUND OF THE CAROTID ARTERIES CLINICAL HISTORY: Syncope. COMPARISON STUDY: No priors. TECHNIQUE: Real-time, grayscale, and color Doppler sonography of the carotid arteries is performed. Images are reviewed in the transverse and longitudinal planes. FINDINGS: Blood pressure in the right arm measures 138/87 and blood pressure in the left arm measures 153/89. The carotid arteries are patent bilaterally and demonstrate antegrade flow. There is mild atherosclerotic plaque seen bilaterally. Normal doppler arterial waveforms are seen throughout. Velocity measurements are listed below. Common carotid peak systolic velocity (cm/sec): RIGHT: 124 LEFT: 151 ICA proximal peak systolic velocity (cm/sec): RIGHT: 90 LEFT: 57 ICA mid peak systolic velocity (cm/sec): RIGHT: 63 LEFT: 75 ICA distal peak systolic velocity (cm/sec): RIGHT: 64 LEFT: 53 ICA/CC peak systolic ratio: RIGHT: 0.7 LEFT: 0.5 Antegrade flow was shown in the vertebral arteries. The external carotid arteries are patent. IMPRESSION: 1. There is no sonographic evidence of hemodynamically significant stenosis in the right or left carotid arterial system. 2. Antegrade flow is shown in the vertebral arteries. Electronically signed by: Tristan Johnston M.D. 02/26/2017 3:56 PM Dictated Date/Time: 02/26/2017 3:55 PM
--- NOTE | 2017-02-26 17:00 | ECHOCARDIOGRAM REPORT ---
*NOTICE TO RECEIVING REPUBLICAN AGENCY This information is strictly Confidential and protected under [place] law. [place] law prohibits you from making any further disclosure of this information unless further disclosure is expressly permitted by the written consent of the person to whom it pertains or is authorized by law. A general authorization for the release of medical or other information is not sufficient for this purpose. Hospital accepts no responsibility if the information is made available to any other person, INCLUDING THE PATIENT. Interpretation Summary * Name: FRANNY RAMSEY JR Study Date: 02/26/2017 01:07 PM BP: 132/98 mmHg * Patient Location: [facility]\S\N281\S\1 HR: 72 * : 1950 (M/d/yyyy) Gender: Male Height: 74 in * Age: 66 yrs Ethnicity: [place] Weight: 274 lb * Ordering Physician: Yoselin Santillan * Referring Physician: Self, Referred * Performed By: Jeny Coronel RDCS * * Reason For Study: Syncope * BSA: 2.5 m2 * The study was technically adequate. * There is no comparison study available. * -- Conclusions -- * Ejection Fraction = 50-55%. * There is mild concentric left ventricular hypertrophy. * There is a moderate sized wall motion abnormality involving the base inferior wall, base and mid posterior and lateral ruiz with hypokinesis of the segments. * The aortic valve is not well visualized. * A bicuspid aortic valve cannot be excluded. * Mild aortic root dilatation. * Mildly dilated ascending aorta. * Small loculated anterior pericardial effusion. * There is a trace amount of fluid loculated in the left lateral position. * There are no echocardiographic indications of cardiac tamponade. * Grade I diastolic dysfunction, (abnormal relaxation pattern). Procedure Details * A complete two-dimensional transthoracic echocardiogram was performed (2D, M-mode, Doppler and color flow Doppler). Left Ventricle * The left ventricle is normal in size. * There is mild concentric left ventricular hypertrophy. * Ejection Fraction = 50-55%. * Left ventricular systolic function is normal. * There is a moderate sized wall motion abnormality involving the base inferior wall, base and mid posterior and lateral ruiz with hypokinesis of the segments. Right Ventricle * The right ventricle is normal size. * The right ventricular systolic function is normal as assessed by tricuspid annular plane systolic excursion (TAPSE) (normal >1.5 cm). Atria * The left atrium is mildly dilated. * Right atrial size is normal. * There is no evidence of atrial septal defect, but resolution does not allow assessment for a patent foramen ovale. Mitral Valve * The mitral valve is normal. * There is no mitral valve stenosis. * Significant mitral regurgitation is absent. Tricuspid Valve * The tricuspid valve is normal. * There is no tricuspid stenosis. * There is trace tricuspid regurgitation. * Doppler findings do not suggest pulmonary hypertension. Aortic Valve * A bicuspid aortic valve cannot be excluded. * The aortic valve is not well visualized. * Aortic stenosis is absent. * There is no significant aortic regurgitation. Pulmonic Valve * The pulmonary valve is not well seen, but the Doppler examination is normal without significant regurgitation or stenosis. Great Vessels * Mild aortic root dilatation. * Mildly dilated ascending aorta. Pericardium/Pleural * Small loculated anterior pericardial effusion. There is a trace amount of fluid loculated in the left lateral position. * There are no echocardiographic indications of cardiac tamponade. Great Vessels * Normal inferior vena cava diameter and respiratory variation suggests normal central venous pressure. Left Ventricular Diastolic Function * Grade I diastolic dysfunction, (abnormal relaxation pattern). MMode 2D Measurements and Calculations IVSd 1.4 cm IVSs 1.9 cm LVIDd 5.5 cm LVIDs 4.1 cm LVPWd 1.3 cm LVPWs 1.7 cm IVS/LVPW 1.0 FS 24.8 % EDV(Teich) 148.6 ml ESV(Teich) 76.3 ml EF(Teich) 48.6 % EDV(cubed) 168.0 ml ESV(cubed) 71.4 ml EF(cubed) 57.5 % % IVS thick 35.0 % % LVPW thick 25.4 % LV mass(C)d 331.0 grams LV mass(C)dI 133.2 grams/m\S\2 LV mass(C)s 325.8 grams LV mass(C)sI 131.1 grams/m\S\2 SV(Teich) 72.2 ml SI(Teich) 29.1 ml/m\S\2 SV(cubed) 96.7 ml SI(cubed) 38.9 ml/m\S\2 EPSS 1.8 cm Ao root diam 3.8 cm Ao root area 11.1 cm\S\2 ACS 2.6 cm LA dimension 3.7 cm asc Aorta Diam 4.2 cm LA/Ao 0.99 LVAd ap4 41.4 cm\S\2 LVLd ap4 9.8 cm EDV(MOD-sp4) 148.3 ml EDV(sp4-el) 148.3 ml LVAs ap4 26.8 cm\S\2 LVLs ap4 8.6 cm ESV(MOD-sp4) 72.9 ml ESV(sp4-el) 70.7 ml EF(MOD-sp4) 50.8 % EF(sp4-el) 52.3 % LVAd ap2 41.5 cm\S\2 LVLd ap2 10.0 cm EDV(MOD-sp2) 155.9 ml EDV(sp2-el) 146.1 ml LVAs ap2 26.2 cm\S\2 LVLs ap2 8.8 cm ESV(MOD-sp2) 70.8 ml ESV(sp2-el) 66.4 ml EF(MOD-sp2) 54.6 % EF(sp2-el) 54.6 % LVLd %diff 1.6 % EDV(MOD-bp) 152.5 ml LVLs %diff 1.8 % ESV(MOD-bp) 71.5 ml EF(MOD-bp) 53.1 % SV(MOD-sp4) 75.4 ml SI(MOD-sp4) 30.3 ml/m\S\2 SV(MOD-sp2) 85.1 ml SI(MOD-sp2) 34.3 ml/m\S\2 SV(MOD-bp) 81.0 ml SI(MOD-bp) 32.6 ml/m\S\2 SV(sp4-el) 77.6 ml SI(sp4-el) 31.2 ml/m\S\2 SV(sp2-el) 79.7 ml SI(sp2-el) 32.1 ml/m\S\2 Doppler Measurements and Calculations MV E max shayna 66.9 cm/sec MV A max shayna 141.2 cm/sec MV E/A 0.47 MV dec time 0.23 sec Ao V2 max 130.9 cm/sec Ao max PG 6.9 mmHg Ao max PG (full) 1.2 mmHg LV V1 max PG 5.7 mmHg LV V1 max 119.3 cm/sec PA V2 max 136.4 cm/sec PA max PG 7.4 mmHg TR max shayna 193.3 cm/sec
[2017-02-26] MEDS: POLYETHYLENE GLYCER PWD 238 GM BTL PO SCH ×2 (18:56→20:28)
[2017-02-26] MEDS ORDERED: POLYETHYLENE (MIRALAX) 17 GM PACK PO SCH (19:00)
[2017-02-26] MEDS ORDERED: BISACODYL 5 MG TABEC PO SCH (19:00)
[2017-02-26 20:17] LABS: HEMATOCRIT 32.4 % (42-52)
[2017-02-26] MEDS: PIPERACILL/TAZOBAC IV 4.5 GM in DEXTROSE 5% 100ML IV SCH (20:25)
[2017-02-27] VITALS (8 sets, daily range): BP systolic 112–132; BP diastolic 69–80; PULSE 71–77; TEMP 36.4–36.6; O2SAT 93–96
[2017-02-27] MEDS: SODIUM CHLORIDE 0.9% 1000ML 1,000 ML IV SCH ×2 (01:11→10:01)
[2017-02-27] MEDS: VANCOMYCIN INJ 1,500 MG in SODIUM CHLORIDE 0.9% 500ML 500 ML IV SCH (04:30)
[2017-02-27] MEDS: PIPERACILL/TAZOBAC IV 4.5 GM in DEXTROSE 5% 100ML IV SCH ×3 (04:30→20:59)
[2017-02-27 07:12] LABS: HEMATOCRIT 28.5 % (42-52); MEAN CORPUSCULAR HGB CONC 33.7 g/dl (32-36); MEAN PLATELET VOLUME 11.3 fL (7.4-10.4); PLATELET COUNT 242 K/uL (130-400); WHITE BLOOD COUNT 12.88 K/uL (4.8-10.8)
[2017-02-27 07:50] LABS: BUN/CREATININE RATIO 16.6 (10-20); CREATININE 1.13 mg/dl (0.60-1.40); POTASSIUM 4.2 mmol/L (3.5-5.1)
--- NOTE | 2017-02-27 09:19 | Gastroenterology Progress Note ---
Progress Note Date of Service: Feb 27, 2017 Subjective Pt evaluation today including: conversation w/ patient, physical exam, chart review, lab review Pt was seen and evaluated, chart reviewed. Colonoscopy prep last night to assess bleeding, pt notes a few episodes of BRBPR at the beginning of his colonoscopy prep. Now just brown stools. No tarry, black stools. No BRBPR. Last BM was this AM, brown, liquid. He notes the abdominal pain he presented to the ED with has resolved. No fever, chills, CP, SOB. Echo w/ moderate sized wall motion abnormality involving the base inferior wall. He is afebrile w/ stable vital signs. Labs reviewed, HCT 36.3 -->28.5 ECHO 02/26/17: EF = 50-55%, mild left ventricular hypertrophy, moderate sized wall motion abnormality involving the base inferior wall, base and mid posterior and lateral ruiz with hypokinesis of the segments. Aortic valve is not well visualized, bicuspid aortic valve cannot be excluded. Mild aortic root dilatation. Mildly dilated ascending aorta. Small loculated anterior pericardial effusion. There is a trace amount of fluid loculated in the left lateral position. There are no echocardiographic indications of cardiac tamponade. Grade I diastolic dysfunction, (abnormal relaxation pattern). 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 Cannot be removed endoscopically. Many 4-10 mm polyps in the transverse colon, removed with hot snare, clip placed. Three 4-9 mm polyps in transverse colon removed with not snare, clip placed. One 18 mm polyp in the rectum. One 7 mm polyp removed from rectum. Repeat colonoscopy due to fair prep , refer to general surgery when pathology returns Chest XR 02/26/17: The bones soft tissues and hemidiaphragms are normal. The cardiomediastinal silhouette is normal. The lungs are clear. The pulmonary vasculature is normal. Poorly defined mild bibasilar parenchymal infiltrative change. CT ABD/Pelvis 02/26/17: No acute process within the abdomen or pelvis. No free air. Endoscopic clip within the cecum. Extensive submucosal fat deposition which suggests chronic inflammation. No free air. Bilobed infrarenal abdominal aortic aneurysm. Superior component measures 5.3 x 4.4 cm and inferior component measures 4.8 x 4 cm. No rupture. 3. 9.3 x 5.2 x 3 cm hypodensity along the fascia of the lateral left thigh. This is indeterminate although likely reflects a fluid collection and may be chronic, related to previous trauma. Trace pericardial effusion. Upon further review, note is made of slight indistinctness of the anterior wall of the proximal transverse colon with possible minimal pericolonic infiltration. There is no free air. A colonic injury is considered unlikely but would be difficult to exclude, particularly if recent intervention at this location. If progressive abdominal pain, short- term follow-up CT is recommended. Review of Systems Constitutional: No fever, No chills Respiratory: No cough, No shortness of breath Cardiac: No chest pain, No edema Abdomen: + diarrhea (on colon prep), No pain, No nausea, No vomiting, No constipation, No GI bleeding Medications Current Inpatient Medications Medications (Trade) Dose Ordered Sig/Linda Route Start Time Stop Time Status Last Admin Dose Admin Ioversol (Optiray 320) 125 ml UD PRN IV 02/26/17 07:45 03/02/17 07:44 Acetaminophen (Tylenol Tab) 650 mg Q4H PRN PO 02/26/17 10:30 03/28/17 10:29 Ondansetron HCl (Zofran Inj) 4 mg Q6H PRN IV 02/26/17 10:30 03/28/17 10:29 Sodium Chloride 1,000 ml @ 100 mls/hr Q10H IV 02/26/17 13:00 03/28/17 12:59 02/27/17 01:11 100 MLS/HR Vancomycin HCl (Consult) 1 ea UD PRN N/A 02/26/17 10:45 03/28/17 10:44 Piperacillin Sod/ Tazobactam Sod (Consult) 1 ea UD PRN N/A 02/26/17 10:45 03/28/17 10:44 Piperacillin Sod/ Tazobactam Sod 4.5 gm/Dextrose 120 ml @ 30 mls/hr Q8H IV 02/26/17 20:00 03/08/17 13:59 02/27/17 04:30 30 MLS/HR Vancomycin HCl 1500 mg/Sodium Chloride 530 ml @ 200 mls/hr Q14H IV 02/26/17 14:00 03/05/17 13:59 02/27/17 04:30 200 MLS/HR Objective Vital Signs Date Time Temp Pulse Resp B/P (MAP) Pulse Ox O2 Delivery O2 Flow Rate FiO2 02/27/17 07:30 36.6 71 18 127/77 (94) 95 Room Air 02/27/17 07:30 95 Room Air 02/27/17 04:15 36.4 77 16 117/76 (90) 93 Room Air 02/27/17 04:00 Room Air 02/27/17 00:00 Room Air 02/26/17 23:50 36.3 83 18 146/87 (106) 96 Room Air 130/92 (105) 131/86 (101) 02/26/17 20:00 97 Room Air 02/26/17 19:33 36.4 78 18 149/79 (102) 97 Room Air 02/26/17 16:00 97 Room Air 02/26/17 15:04 36.5 90 20 123/73 (90) 97 Room Air 02/26/17 12:29 36.4 78 20 151/85 (107) 97 Room Air 02/26/17 11:28 69 17 122/69 97 02/26/17 11:13 72 15 96 02/26/17 11:10 36.4 71 18 132/98 Room Air 02/26/17 10:58 72 19 99 02/26/17 10:43 72 02/26/17 10:41 71 18 132/98 99 Room Air 02/26/17 10:37 132/98 02/26/17 10:28 73 22 98 02/26/17 10:13 70 19 99 02/26/17 09:58 71 21 96 02/26/17 09:43 71 16 96 02/26/17 09:35 68 18 127/83 98 Room Air 02/26/17 09:35 127/83 02/26/17 09:28 72 15 02/26/17 09:13 69 15 Physical Exam General Appearance: no apparent distress Eyes: PERRL ENT: hearing grossly normal Neck: supple Respiratory/Chest: lungs clear Cardiovascular: regular rate, rhythm Abdomen: normal bowel sounds, non tender, soft, no organomegaly Neurologic/Psych: alert, normal mood/affect, oriented x 3 Skin: normal color Laboratory Results Last 24 Hours Test 02/26/17 09:50 02/26/17 13:30 02/26/17 15:09 02/26/17 16:41 Influenza Type A (RT-PCR) Neg for Influ A Influenza Type B (RT-PCR) Neg for Influ B Creatine Kinase MB Ratio Hemoglobin 10.2 g/dL Hematocrit 31.1 % Creatine Kinase MB 2.5 ng/ml Troponin I 0.024 ng/ml Bedside Glucose 171 mg/dl Test 02/26/17 19:30 02/26/17 19:57 02/27/17 06:30 Creatine Kinase MB Ratio Hemoglobin 10.6 g/dL 9.6 g/dL Hematocrit 32.4 % 28.5 % Creatine Kinase MB 2.6 ng/ml Troponin I 0.029 ng/ml White Blood Count 12.88 K/uL Red Blood Count 3.00 M/uL Mean Corpuscular Volume 95.0 fL Mean Corpuscular Hemoglobin 32.0 pg Mean Corpuscular Hemoglobin Concent 33.7 g/dl RDW Standard Deviation 50.8 fL RDW Coefficient of Variation 14.9 % Platelet Count 242 K/uL Mean Platelet Volume 11.3 fL Sodium Level 139 mmol/L Potassium Level 4.2 mmol/L Chloride Level 107 mmol/L Carbon Dioxide Level 26 mmol/L Anion Gap 6.0 mmol/L Blood Urea Nitrogen 19 mg/dl Creatinine 1.13 mg/dl Est Creatinine Clear Calc Drug Dose 93.5 ml/min Estimated GFR () 79.2 Estimated GFR (Non- 68.3 BUN/Creatinine Ratio 16.6 Random Glucose 98 mg/dl Calcium Level 8.0 mg/dl Assessment and Plan 66 year old male w/ fever, chills, lightheadedness, dizziness, abdominal pain and rectal bleeding follow colonoscopy w/ multiple polyps removed on 02/21/17. CT w/ indistinctness of the anterior wall of the proximal transverse colon with possible minimal pericolonic infiltration, there is no free air. Reviewed w/ radiology who feel edema is secondary to colonoscopy w/ polypectomy, and stress no free air. Suggest if symptoms persist, worsen to repeat CT. 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 He tolerated a bowel prep overnight, had a few episodes of BRBPR then notes brown, liquid stools. Has not had any rectal bleeding since yesterday evening. Given his extensive comorbidities (large AAA, abnormal ECHO) and resolution of rectal bleeding, GI will postpone colonoscopy. No role for inpatient colonoscopy, GI ok with diet Trend H&H, Monitor stools,Transfuse PRN IVF for fluid resuscitation Continue Cipro/Flagyl Repeat CT abd/pelvis if symptoms persist He will need a repeat colonoscopy as an outpatient He will need a referral to general surgery for surgical removal of ascending colon mass (TVA) Additional management per cardiology and primary team GI will watch peripherally. Please call with any changes or concerns. I saw and evaluated the patient. There was no report of bleeding overnight. Given this and his recent cardiac changes I would suggest we hold on a repeat colonoscopy for the present time. In the patient's diet as tolerated and please let us know if there is any evidence of recurrent bleeding.
[2017-02-27 10:32] LABS: URINE APPEARANCE CLEAR (CLEAR); URINE BILIRUBIN NEG (NEG); URINE COLOR YELLOW; URINE NITRITE NEG (NEG); UROBILINOGEN NEG (NEG); ZZUR CULT IF INDIC CLEAN CATCH NO
[2017-02-27 10:33] LABS: MANUAL MICROSCOPIC REQUIRED? NO; REVIEW REQ? NO
--- NOTE | 2017-02-27 10:47 | Surgery Consultation ---
Consultation Date of Service Feb 27, 2017. Chief Complaint bilobed AAA 5.3cm History of Present Illness The patient is a 66 year old male with recent hx of colonscopy and multiple polyp removal, admitted after syncopal episode at home and possible GI bleeding , seen in consultation today for AAA noted on CT scan of abd. Pt states he was previously unaware of his AAA, has not seen a physician in years. Has family hx of AAA on maternal side(some uncles, not his mother). Admits fatigue, and states is anxious regarding his multiple problems showing up on testing. Pt denies SNYDER, fever, chills, chest pain, SOB, abd pain, N/V, rest pain, claudication, other complaints. Vitals Vital Signs Past 12 Hours Date Time Temp Pulse Resp B/P (MAP) Pulse Ox O2 Delivery O2 Flow Rate FiO2 02/27/17 07:30 36.6 71 18 127/77 (94) 95 Room Air 02/27/17 07:30 95 Room Air 02/27/17 04:15 36.4 77 16 117/76 (90) 93 Room Air 02/27/17 04:00 Room Air 02/27/17 00:00 Room Air 02/26/17 23:50 36.3 83 18 146/87 (106) 96 Room Air 130/92 (105) 131/86 (101) Allergies Coded Allergies: No Known Allergies (Verified , 02/26/17) Home Medications No Active Prescriptions or Reported Meds Problem List Surgical Problems: (1) H/O artificial lens replacement (2) H/O colonoscopy (3) H/O colonoscopy Family History CABG FATHER BROTHER FH: colon cancer BROTHER Social History Smoking Status: Current Every Day Smoker Hx Tobacco Use In Past Year?: Yes Hx Alcohol Use - Type & Amnt: No Hx Substance Use -Type & Amnt: No Review of Systems Constitutional: + malaise, No chills, No fever Skin: No change in color Eyes: No visual changes ENMT: No sore throat Respiratory: No cough, No DELUNA, No hemoptysis, No short of breath Cardiovascular: No chest pain, No palpitations, No syncope, No edema, No intermittent claudication Gastrointestinal: + hematochezia, + rectal bleeding, No abdominal pain Neurologic: No dizziness, No lethargy, No numbness, No tingling Physical Exam Constitutional: General Apperance: well-nourished, well-developed, obese Level of Distress: NAD Psychiatric: Mental Status: active & alert, normal mood, normal affect Orientation: oriented except where noted, to time, to place, to person Memory: recent memory normal, remote memory normal Head: normocephalic, atraumatic Eyes: EOM: EOMI ENMT: normal ENT inspection, hearing grossly normal Neck: supple, trachea midline Lungs: Respiratory effort: no dyspnea Auscultation: no wheezing, no rales/crackles, no rhonchi Cardiovascular: Apical Impulse: not displaced Heart Auscultation: RRR, no rubs, no gallops Peripheral Pulses: Pulses: full and equal, in all extremities except if noted Bruits: none appreciated Carotid Pulse: normal on the left, normal on the right Brachial Pulses: normal on the left, normal on the right Radial Pulse: normal on the left, normal on the right Femoral Pulse: normal on the left, normal on the right Posterior Tibialis Pulse: decreased on the left, decreased on the right Dorsalis Pedis Pulse: decreased on the left, decreased on the right Abdomen: Bowel Sounds: normal Inspection & Palpation: soft, distended, LLQ tenderness Musculoskeletal: normal strength (5/5 throughout), normal tone Extremities: Upper Right: no cyanosis, no edema, no varicosities Upper Left: no cyanosis, no edema, no varicosities Lower Right: no cyanosis, no varicosities, no palpable cord, edema Lower Left: no cyanosis, no varicosities, no palpable cord, edema Neurologic: Cranial Nerves: grossly intact Sensation: grossly intact Assessment and Plan ASSESSMENT and PLAN: AAA 5.3 Discussion had with pt and regarding AAA and possible future surgery. Pt currently undergoing cardiac and GI testing for acute issues, recommend reeval with US in 2-3 months. Advised pt of lifting restriction of 25lbs, recommended smoking cessation and HTN control. Please call if needed otherwise.
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
--- NOTE | 2017-02-27 12:13 | CARDIOLOGY CONSULTATION ---
DATE OF CONSULTATION: 02/27/2017 DATE OF CONSULTATION: 02/27/2017 REFERRING: ALICIA Huggins. PRIMARY CARE PHYSICIAN: Dr. Ernesto Prado. HISTORY OF PRESENT ILLNESS: The patient is a 66-year-old male with sporadic medical care recently represented for medical evaluation after nearly 20 years laps per patient after brother was diagnosed with colon cancer. He subsequently was evaluated and underwent colonoscopy with multiple polyp removal. He then noted several days later bright red blood per rectum with associated acute diaphoresis and lightheadedness. He "did not pass all the way out". The patient went to bed without return of symptoms. On date of admission patient once again noted bright red blood per rectum while sitting on the toilet and was found on the floor in the bathroom by . He was brought to the Emergency Room for further evaluation. During his evaluation studies included negative cardiac enzymes, no arrhythmias on EKG. EKG reflecting Q-waves consistent with inferior infarct, old echocardiogram reflected hypokinesis, moderate size involving the basal inferior and basilar mid posterior and lateral ruiz. EF mildly depressed at 50-55%. There is mildly dilated aortic root and ascending aorta. CT scan of the abdomen also identified newly found 5.3 cm abdominal aneurysm. The patient is referred now for further evaluation. Currently patient notes no complaints. Denies any chest pain or discomfort. Notes no history of chest pain or rheumatic fever, scarlet fever or heart murmur. Notes no history of tachypalpitations, syncope, or near syncope. He was active to a modest level about his home and work. Will climb stairs carrying packages, carrying computer without associated symptoms or chest pain. Intermittently exercises to a low level degree without specific restriction. Notes no recent fevers or chills. Acute illnesses are compacted to current complaints. He is a 1 pack per day smoker. Notes no prior history of TIA or stroke, renal or hepatic disease though initial renal function had declined on presentation. ALLERGIES: None. REVIEW OF SYSTEMS: Otherwise negative or per HPI. MEDICATIONS: Prior to hospitalization were notable only for recent nicotine patch. PAST SURGICAL HISTORY: None. FAMILY HISTORY: Positive for heart disease in father and brother, brother with a history of colon cancer, history of abdominal aneurysm also run in family per patient. 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 He is a resident of [place]. He is a 1 pack per day smoker and has been for a number of years. Uses no alcohol or significant [id number] medications. PHYSICAL EXAMINATION: VITAL SIGNS: Heart rate is 80, blood pressure is 127/77, O2 saturations 95%. Orthostatic blood pressures yesterday demonstrated mild orthostatic decline. HEAD, EYES, EARS, NOSE, AND THROAT EXAMINATION: Normocephalic, atraumatic. Nares without discharge. Throat was clear. NECK: Supple without thyromegaly. There are no carotid bruits. LUNGS: Notable for diminished breath sounds diffusely, but are clear. CARDIOVASCULAR EXAMINATION: Regular with normal S1, S2. There is no audible murmur, gallop or rub. ABDOMEN: Soft, nontender. There is no palpable hepatosplenomegaly. There is no hepatojugular reflux. EXTREMITIES: Without cyanosis or clubbing. There is no peripheral edema. Distal pulses are 1/4 dorsalis pedis and posterior tibialis. There is no audible abdominal or femoral bruits. NEUROLOGIC: The patient is alert and answering questions appropriately. LABORATORY STUDIES: This morning hemoglobin is 9.6, this represents substantial decline from 02/21/2017 when it was 16.9. White cell count 12.8, platelet counts 242,000. Sodium is 139, potassium is 4.4, chloride is 104, bicarb 22, BUN is 27, creatinine is 1.5 day prior. Creatinine this morning is 1.3, BUN of 19. CK-MB and troponins are negative. EKG reveals sinus rhythm with Q-waves in inferior leads. Nonspecific ST segment changes. No evolution over 2 serial EKGs. Echocardiogram demonstrates per report moderate left ventricular hypertrophy, hypokinesis as described inferoposterior ruiz. EF 55%, aortic valve not well visualized but no evidence of aortic stenosis. Aorta is mildly enlarged at the root and ascending aorta. CT scan to evaluate above complaints also identified as described 5.3 cm aortic abdominal aneurysm. IMPRESSION: 1. A 66-year-old male recently reestablished medical care and underwent colonoscopy with multiple polypectomies approximately 6 days ago presented with episodes of acute rectal bleeding associated probable vasovagal syncope versus hypotension. Laboratory studies reflect significant drop in hemoglobin from 16.9 to 9.6 laboratory studies immediately preprocedure. The patient in the course of evaluation has demonstrated multiple issues which include findings suggestive of prior coronary disease with EKG and echocardiographic abnormalities. 2. Low HDL dyslipidemia with chronic tobacco use. 3. Abdominal aortic aneurysm. 4. Ongoing issues with bowel. Findings at time of colonoscopy including potential plans for surgical bowel resection. RECOMMENDATIONS: We will plan on adding low dose beta don to regimen for cardioprotective affect with Toprol-XL 12.5 mg twice per day. Tobacco cessation will be urged. The patient will likely warrant lipid reduction given the presence of vascular disease though lipids done prehospital demonstrated only low HDL without significant LDL elevation with total cholesterol of 143 and LDL of 82 and HDL 29. Will begin with atorvastatin 40 mg per day; however, given identified vascular disease as the patient anticipates likely intervention both from bowel as well as vascular issues in the future, stress testing is warranted. He has no symptoms to suggest angina or decline in functional capacity to warrant a more aggressive approach. At this point in time given dramatic drop in hemoglobin and possible recent instability of blood pressures would not perform today. Will initiate above and reassess.
[2017-02-27] MEDS ORDERED: METOPROLOL SUCC 25MG EXT REL TAB PO ONE (12:15)
[2017-02-27] MEDS: NICOTINE 21 MG/24 HR TDSY TD SCH (12:28)
[2017-02-27] MEDS ORDERED: PIPERACILL/TAZOBAC IV 4.5 GM in DEXTROSE 5% 100ML 100 ML IV SCH (12:30)
[2017-02-28] VITALS (9 sets, daily range): BP systolic 128–163; BP diastolic 55–96; PULSE 71–90; TEMP 36.4–36.7; O2SAT 94–97
[2017-02-28] MEDS: PIPERACILL/TAZOBAC IV 4.5 GM in DEXTROSE 5% 100ML IV SCH ×2 (04:07→12:00)
[2017-02-28 05:57] LABS: HEMATOCRIT 27.3 % (42-52); MEAN CELL VOLUME 95.8 fL (80-100); MEAN CORPUSCULAR HEMOGLOBIN 31.2 pg (25-34); MEAN CORPUSCULAR HGB CONC 32.6 g/dl (32-36); MEAN PLATELET VOLUME 11.1 fL (7.4-10.4); PLATELET COUNT 248 K/uL (130-400); RED BLOOD COUNT 2.85 M/uL (4.7-6.1); WHITE BLOOD COUNT 11.88 K/uL (4.8-10.8)
[2017-02-28 06:23] LABS: BUN/CREATININE RATIO 14.1 (10-20); CREATININE 1.16 mg/dl (0.60-1.40); POTASSIUM 3.7 mmol/L (3.5-5.1)
[2017-02-28] MEDS ORDERED: VANCOMYCIN TROUGH ONE (07:30)
[2017-02-28] MEDS: NICOTINE 21 MG/24 HR TDSY TD SCH (07:54)
--- NOTE | 2017-02-28 08:31 | Gastroenterology Progress Note ---
Progress Note Date of Service: Feb 28, 2017 Subjective Pt evaluation today including: conversation w/ patient, physical exam, chart review, lab review Pt was seen and evaluated, chart reviewed. No acute events overnight. H&H dropped overnight. He adamantly denies any further episodes of hematochezia. Denies any dark stools. His diet was advanced yesterday and tolerated. He is no longer having any abdominal pain. He has had two BMs since he was evaluated yesterday, brown, starting to become more formed. No fever, chills, CP, SOB. He is afebrile, hypertensive & tachycardic. Labs reviewed. ECHO 02/26/17: EF = 50-55%, mild left ventricular hypertrophy, moderate sized wall motion abnormality involving the base inferior wall, base and mid posterior and lateral ruiz with hypokinesis of the segments. Aortic valve is not well visualized, bicuspid aortic valve cannot be excluded. Mild aortic root dilatation. Mildly dilated ascending aorta. Small loculated anterior pericardial effusion. There is a trace amount of fluid loculated in the left lateral position. There are no echocardiographic indications of cardiac tamponade. Grade I diastolic dysfunction, (abnormal relaxation pattern). 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 Cannot be removed endoscopically. Many 4-10 mm polyps in the transverse colon, removed with hot snare, clip placed. Three 4-9 mm polyps in transverse colon removed with not snare, clip placed. One 18 mm polyp in the rectum. One 7 mm polyp removed from rectum. Repeat colonoscopy due to fair prep , refer to general surgery when pathology returns Chest XR 02/26/17: The bones soft tissues and hemidiaphragms are normal. The cardiomediastinal silhouette is normal. The lungs are clear. The pulmonary vasculature is normal. Poorly defined mild bibasilar parenchymal infiltrative change. CT ABD/Pelvis 02/26/17: No acute process within the abdomen or pelvis. No free air. Endoscopic clip within the cecum. Extensive submucosal fat deposition which suggests chronic inflammation. No free air. Bilobed infrarenal abdominal aortic aneurysm. Superior component measures 5.3 x 4.4 cm and inferior component measures 4.8 x 4 cm. No rupture. 3. 9.3 x 5.2 x 3 cm hypodensity along the fascia of the lateral left thigh. This is indeterminate although likely reflects a fluid collection and may be chronic, related to previous trauma. Trace pericardial effusion. Upon further review, note is made of slight indistinctness of the anterior wall of the proximal transverse colon with possible minimal pericolonic infiltration. There is no free air. A colonic injury is considered unlikely but would be difficult to exclude, particularly if recent intervention at this location. If progressive abdominal pain, short- term follow-up CT is recommended. C.diff 02/26/17: negative Culture 02/26/17: negative to date Review of Systems Constitutional: No fever, No chills Respiratory: No cough, No shortness of breath Cardiac: No chest pain, No edema Abdomen: No pain, No nausea, No vomiting, No diarrhea, No constipation, No GI bleeding Medications Current Inpatient Medications Medications (Trade) Dose Ordered Sig/Linda Route Start Time Stop Time Status Last Admin Dose Admin Ioversol (Optiray 320) 125 ml UD PRN IV 02/26/17 07:45 03/02/17 07:44 Acetaminophen (Tylenol Tab) 650 mg Q4H PRN PO 02/26/17 10:30 03/28/17 10:29 Ondansetron HCl (Zofran Inj) 4 mg Q6H PRN IV 02/26/17 10:30 03/28/17 10:29 Piperacillin Sod/ Tazobactam Sod (Consult) 1 ea UD PRN N/A 02/26/17 10:45 03/28/17 10:44 Piperacillin Sod/ Tazobactam Sod 4.5 gm/Dextrose 120 ml @ 30 mls/hr Q8H IV 02/26/17 20:00 03/08/17 13:59 02/28/17 04:07 30 MLS/HR Nicotine (Nicoderm Cq 21MG Patch) 1 patch QAM TD 02/27/17 11:15 03/29/17 11:14 02/28/17 07:54 1 PATCH Miscellaneous (Remove Nicoderm Patch) 1 ea HS N/A 02/27/17 21:00 03/29/17 20:59 Metoprolol Succinate (Toprol Xl Tab) 12.5 mg QAM PO 02/28/17 09:00 03/30/17 08:59 02/28/17 07:54 12.5 MG Atorvastatin Calcium (Lipitor Tab) 40 mg QAM PO 02/28/17 09:00 03/30/17 08:59 02/28/17 07:53 40 MG Objective Vital Signs Date Time Temp Pulse Resp B/P (MAP) Pulse Ox O2 Delivery O2 Flow Rate FiO2 02/28/17 07:27 36.4 72 20 156/88 (110) 94 Room Air 02/28/17 04:12 36.6 72 16 149/82 (104) 94 Room Air 02/28/17 04:00 Room Air 02/28/17 01:28 163/55 (91) 02/28/17 00:29 80 128/74 (92) 02/28/17 00:00 Room Air 02/28/17 00:00 36.6 90 16 158/92 (114) 95 Room Air 02/27/17 20:22 95 Room Air 02/27/17 19:51 36.6 77 18 119/69 (86) 93 Room Air 02/27/17 16:02 95 Room Air 02/27/17 15:52 36.6 72 16 112/71 (85) 95 Room Air 02/27/17 13:00 77 18 123/73 (90) 96 Room Air 02/27/17 11:32 36.5 72 18 132/80 (97) 93 Physical Exam General Appearance: no apparent distress Eyes: PERRL ENT: hearing grossly normal Neck: supple Respiratory/Chest: lungs clear Cardiovascular: regular rate, rhythm, no gallop, no JVD Abdomen: normal bowel sounds, non tender, soft, no organomegaly, no pulsatile mass Neurologic/Psych: alert, normal mood/affect, oriented x 3 Skin: normal color Laboratory Results Last 24 Hours Test 02/27/17 10:12 02/28/17 05:25 Urine Color YELLOW Urine Appearance CLEAR Urine pH 5.0 Urine Specific [place] 1.030 Urine Protein NEG Urine Glucose (UA) NEG Urine Ketones NEG Urine Occult Blood NEG Urine Nitrite NEG Urine Bilirubin NEG Urine Urobilinogen NEG Urine Leukocyte Esterase NEG Urine WBC (Auto) 1-5 /hpf Urine RBC (Auto) 0-4 /hpf Urine Hyaline Casts (Auto) 1-5 /lpf Urine Epithelial Cells (Auto) 10-20 /lpf Urine Bacteria (Auto) NEG White Blood Count 11.88 K/uL Red Blood Count 2.85 M/uL Hemoglobin 8.9 g/dL Hematocrit 27.3 % Mean Corpuscular Volume 95.8 fL Mean Corpuscular Hemoglobin 31.2 pg Mean Corpuscular Hemoglobin Concent 32.6 g/dl RDW Standard Deviation 52.5 fL RDW Coefficient of Variation 15.1 % Platelet Count 248 K/uL Mean Platelet Volume 11.1 fL Sodium Level 139 mmol/L Potassium Level 3.7 mmol/L Chloride Level 107 mmol/L Carbon Dioxide Level 26 mmol/L Anion Gap 5.0 mmol/L Blood Urea Nitrogen 16 mg/dl Creatinine 1.16 mg/dl Est Creatinine Clear Calc Drug Dose 91.5 ml/min Estimated GFR () 76.7 Estimated GFR (Non- 66.2 BUN/Creatinine Ratio 14.1 Random Glucose 96 mg/dl Calcium Level 8.0 mg/dl Assessment and Plan 66 year old male w/ fever, chills, lightheadedness, dizziness, abdominal pain and rectal bleeding follow colonoscopy w/ multiple polyps removed on 02/21/17. CT w/ indistinctness of the anterior wall of the proximal transverse colon with possible minimal pericolonic infiltration, there is no free air. Reviewed w/ radiology who feel edema is secondary to colonoscopy w/ polypectomy, and stress no free air. Suggest if symptoms persist, worsen to repeat CT. 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 He tolerated a bowel prep overnight, had a few episodes of BRBPR then notes brown, liquid stools. Has not had any rectal bleeding since yesterday evening. Given his extensive comorbidities (large AAA, abnormal ECHO) and resolution of rectal bleeding, no plan for inpatient colonoscopy. No role for inpatient colonoscopy, GI ok with diet Trend H&H, Monitor stools,Transfuse PRN IVF for fluid resuscitation Continue Cipro/Flagyl Repeat CT abd/pelvis if symptoms persist He will need a repeat colonoscopy as an outpatient He will need a referral to general surgery for surgical removal of ascending colon mass (TVA) Additional management per cardiology and primary team GI to sign off. Resolution of abdominal pain and hematochezia, no further evidence of GIB. Will need to arrange surgery consultation and repeat colonoscopy when medically cleared. Please call with any changes or concerns. I saw and evaluated the patient. No recurrence of hematochezia over the past 36 hours. It appears that the post-polypectomy bleeding has ceased. At this time I would recommend completion of 7 days of Cipro Flagyl as you're doing. I would also suggest a daily iron supplement to help the patient rebuild his blood count back to normal. He will follow-up with Dr. marie as an outpatient to determine timing of his next colonoscopy and referral to colorectal surgery for a large polyp.
[2017-02-28] MEDS ORDERED: ATORVASTATIN 40 MG TAB PO SCH (09:00)
[2017-02-28] MEDS ORDERED: METOPROLOL SUCC 25MG EXT REL TAB PO SCH (09:00)
[2017-02-28] MEDS ORDERED: LISINOPRIL 2.5 MG TAB PO ONE (11:30)
--- NOTE | 2017-02-28 11:30 | CARDIOLOGY PROGRESS NOTE ---
DATE: 02/28/2017 DATE: 02/28/2017 The patient seen and examined. Chart, medications, telemetry reviewed. SUBJECTIVE: The patient feels washed out, but no acute complaints this morning. Notes no further bleeding, has dark brown stools. Notes no dizziness or lightheadedness. Notes no chest pain or discomfort. OBJECTIVE: VITAL SIGNS: Heart rate 72, blood pressure is 156/88. HEAD, EYES, EARS, NOSE, AND THROAT: Normocephalic, atraumatic. Nares without discharge. Throat was clear. NECK: Supple without thyromegaly or lymphadenopathy. There are no carotid bruits. LUNGS: Notable for diminished breath sounds but are predominantly clear. CARDIOVASCULAR: Regular. There is no S3 gallop. ABDOMEN: Soft, nontender. There is no palpable hepatosplenomegaly. There is no hepatojugular reflux. EXTREMITIES: Without cyanosis or clubbing. There is no peripheral edema. DATA: EKG reveals sinus rhythm with Q-waves inferiorly, nonspecific ST segment changes, unchanged from prior tracings. LABORATORY STUDIES: Hemoglobin has declined further to 8.9, platelet count 248. Sodium is 139, potassium is 3.7, chloride is 107, bicarbonate is 26, BUN 16, creatinine is 1.1. IMPRESSION: A 66-year-old male who was admitted with GI bleeding following colonoscopy and polypectomy. Course of evaluation was found to have issues as follows: 1. Presumed ischemic heart disease by echo and EKG, asymptomatic. 2. Asymptomatic abdominal aneurysm. RECOMMENDATIONS: Per review of records and discussion with patient it is anticipated he will need to undergo likely GI surgery due to possible mass in mid colon, possible repeat colonoscopy as well as future plans for possible intervention on abdominal aortic aneurysm. I have discussed findings in detail, would like to do further cardiac evaluation with stress testing though will not perform during this admission. Plan will be to place on optimal medical regimen which includes low dose beta don as already begun given hypertension now that anemia bleeding has been controlled will add KALEB inhibitor at initially 2.5 mg lisinopril, keep on statin therapy with atorvastatin 40 mg p.o. every day, and begin aspirin 81 mg per day 1 week's time. Will recommend the patient then be referred for stress echocardiography to assess ischemic burden and exercise and blood pressure response to risk stratify for potential upcoming surgeries. Discussed all in detail with the patient.
[2017-02-28] MEDS ORDERED: NURSING VERBAL MED ORDER ONE (12:30)
[2017-02-28] MEDS ORDERED: FRRS300 PO (14:15)
[2017-02-28] MEDS ORDERED: ASPI-428 PO (14:15)
[2017-02-28] MEDS ORDERED: LPT40 PO (14:15)
[2017-02-28] MEDS ORDERED: NICO14DI31 TD (14:15)
[2017-02-28] MEDS ORDERED: LSN25 PO (14:15)
[2017-02-28] MEDS ORDERED: AMOX875T PO (14:15)
[2017-02-28] MEDS ORDERED: TPRSR25 PO (14:15)
--- NOTE | 2017-02-28 14:51 | Discharge Instructions ---
Discharge Instructions Date of Service Feb 28, 2017. Admission Reason for Admission: passed out . Discharge Discharge Diagnosis / Problem: passed out, anemia, suspected heart disease, abdominal aortic aneurysm Discharge Goals Goal(s): Improve disease control Activity Recommendations Activity Limitations: as noted below (light activity, no strenuous exercise until otherwise instructed) Lifting Limitations: no more than 25 pounds . Instructions / Follow-Up Instructions / Follow-Up APPOINTMENTS: FAMILY MEDICINE 03/09/2017 10:40 AM Ernesto Prado MD CARDIOLOGY Dr. Mo Yip [facility], [facility] Office will contact you with appointment. GASTROENTEROLOGY Dr. Eaton [facility] Office will contact you with appointment. VASCULAR SURGERY Dr. Veliz [facility] Office will contact you with appointment. OTHER INSTRUCTIONS: You probably passed out because of bleeding from colonoscopy with removal of polyps. Take ferrous sulfate (iron pills) twice a day to build up your blood count. Take amoxicillin / clavulanic acid (Augmentin) twice a day with food for possible infection from polyp removal. Echocardiogram (ultrasound of heart) suggests blockage in arteries with possible heart attack in the past. Please start the following medications: metoprolol succinate (Toprol XL) 12. 5 mg daily good for blood pressure, heart conditions, and vascular disease lisinopril (Prinivil or Zestril) 2.5 mg daily good for blood pressure, heart conditions, and vascular disease aspirin (Ecotrin) 81 mg daily helps prevent heart attacks and strokes DO NOT START UNTIL 03/07/17 atorvastatin (Lipitor) 40 mg daily lowers cholesterol, helps prevent heart attacks and strokes Dr. Eaton will arrange for follow-up colonoscopy and referral to General Surgery regarding the polyps in your colon. CT scan showed an abdominal aortic aneurysm that measured up to 5.[address] Veliz will arrange for follow-up. CT scan showed a cyst in the left kidney. CT of brain looked OK. No sign of stroke or other problems. Ultrasound of carotid arteries showed some mild hardening of the arteries, but no significant blockage. Some of your blood sugars were high, but you do not have diabetes. You should have your fasting blood sugars checked periodically. It is imperative that you quit smoking. Use nicotine patches as directed in product information, starting at 14 mg. Seek medical attention if you have: * temperature above 101 * chest pain or trouble breathing * abdominal pain, nausea, vomiting * diarrhea, dark stools or bloody stools * any unanswered questions or concerns Call 911 if symptoms are severe. Call if you have any questions or problems. My cell # is [phone]. You can also reach a [facility] hospitalist on duty at [facility] 24 hours a day by calling [phone]. Please take good care of yourself. Patric Dsouza . Current Hospital Diet Patient's current hospital diet: AHA Diet (Heart Healthy), Low Fiber Diet Discharge Diet Recommended Diet: AHA Diet (Heart Healthy), Low Fiber Diet (for 1 week) Procedures Procedures Performed: CT head CT abdomen and pelvis echocardiogram ultrasound of carotid arteries Pending Studies Studies pending at discharge: yes List of pending studies: outpatient stress test to be arranged repeat colonoscopy to be arranged Laboratory Results Hemoglobin A1c Test 02/26/17 07:34 Range/Units Estimated Average Glucose 117 mg/dl Hemoglobin A1c 5.7 H 4.5-5.6 % Last 24 Hours Test 02/28/17 05:25 White Blood Count 11.88 K/uL Red Blood Count 2.85 M/uL Hemoglobin 8.9 g/dL Hematocrit 27.3 % Mean Corpuscular Volume 95.8 fL Mean Corpuscular Hemoglobin 31.2 pg Mean Corpuscular Hemoglobin Concent 32.6 g/dl RDW Standard Deviation 52.5 fL RDW Coefficient of Variation 15.1 % Platelet Count 248 K/uL Mean Platelet Volume 11.1 fL Sodium Level 139 mmol/L Potassium Level 3.7 mmol/L Chloride Level 107 mmol/L Carbon Dioxide Level 26 mmol/L Anion Gap 5.0 mmol/L Blood Urea Nitrogen 16 mg/dl Creatinine 1.16 mg/dl Est Creatinine Clear Calc Drug Dose 91.5 ml/min Estimated GFR () 76.7 Estimated GFR (Non- 66.2 BUN/Creatinine Ratio 14.1 Random Glucose 96 mg/dl Calcium Level 8.0 mg/dl Medical Emergencies . Who to Call and When: Medical Emergencies: If at any time you feel your situation is an emergency, please call 911 immediately. . Non-Emergent Contact Non-Emergency issues call your: Primary Care Provider, Test Eng, Audio Visual Design Engineer, Hospital Doctor . . "Provider Documentation" section prepared by Patric Dsouza. . VTE Core Measure Inpt VTE Proph given/why not?: SCD's
--- NOTE | 2017-02-28 15:33 | Progress Note ---
Medicine Progress Note Date & Time of Visit: Feb 28, 2017 at 15:33 . Subjective Doing well. No further GI bleeding. No abdominal pain. No nausea or vomiting. No chest pain. No cough or dyspnea. Ambulating in room. . Objective Last 8 Hrs Date Time Temp Pulse Resp B/P (MAP) Pulse Ox O2 Delivery O2 Flow Rate FiO2 02/28/17 13:30 36.7 75 18 144/81 (102) 97 Room Air 02/28/17 13:21 36.5 71 20 161/96 (117) 94 Room Air 02/28/17 11:22 36.7 75 20 97 Room Air 02/28/17 11:19 36.4 75 20 153/77 (102) 97 Room Air 02/28/17 08:00 94 Room Air Physical Exam: General- no distress Neck- no JVD Lungs- clear Heart- RRR Abdomen- + BS, soft, nontender Extremities- no pretibial edema or calf tenderness Neuro- alert Patient ambulated in hallway ~ 200 feet without CP or significant dyspnea. . Laboratory Results: Last 24 Hours Test 02/28/17 05:25 White Blood Count 11.88 K/uL Red Blood Count 2.85 M/uL Hemoglobin 8.9 g/dL Hematocrit 27.3 % Mean Corpuscular Volume 95.8 fL Mean Corpuscular Hemoglobin 31.2 pg Mean Corpuscular Hemoglobin Concent 32.6 g/dl RDW Standard Deviation 52.5 fL RDW Coefficient of Variation 15.1 % Platelet Count 248 K/uL Mean Platelet Volume 11.1 fL Sodium Level 139 mmol/L Potassium Level 3.7 mmol/L Chloride Level 107 mmol/L Carbon Dioxide Level 26 mmol/L Anion Gap 5.0 mmol/L Blood Urea Nitrogen 16 mg/dl Creatinine 1.16 mg/dl Est Creatinine Clear Calc Drug Dose 91.5 ml/min Estimated GFR () 76.7 Estimated GFR (Non- 66.2 BUN/Creatinine Ratio 14.1 Random Glucose 96 mg/dl Calcium Level 8.0 mg/dl Assessment & Plan SYNCOPE Most likely secondary to orthostatic hypotension from GI blood loss. No significant arrhythmias on telemetry. ACUTE BLOOD LOSS ANEMIA GI bleeding after multiple polypectomies 02/21. Hgb 16 02/21 --> 12.2 at time of admission --> 8.9 today. No further gross bleeding. No need for transfusion at this time per guidelines. Start Fe replacement. Follow. COLONIC POLYPS Colonoscopy 02/21 demonstrated numerous colonic polyps, including large polyp in ascending colon that could not be resected. Path => tubular adenomas and tubulovillous adenomas. 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 There is a national shortage of metronidazole, so will utilize IV piperacillin / tazobactam --> oral amoxicillin / clavulanic acid. Outpatient follow-up with GI and General Surgery. ABNORMAL ECHO / SUSPECTED ISCHEMIC HEART DISEASE Echo demonstrates segmental wall motion abnormalities with normal overall LVEF. Strong family history of ischemic heart disease + dyslipidemia + smoking. Cardiology consulted. [place] best not to pursue stress testing at this time due to GI bleed with acute blood loss anemia. Started on metoprolol succinate 12.5 mg daily, lisinopril 2.5 mg daily, atorvastatin 40 mg daily. Start aspirin in 1 week if no further GI bleeding. Outpatient follow-up with Cardiology. AAA Bilobed infrarenal AAA noted on CT of abdomen and pelvis, 5.3 cm in greatest diameter. Asymptomatic. Vascular Surgery consulted. SMOKING Importance of smoking cessation discussed. Nicotine patch recommended. Given info on quitting. May be candidate for lung cancer screening (pack-year history ~ 20-30 years). Advised to discuss with PCP. VTE PROPHYLAXIS No anticoagulants due to GI bleed. SCD's. Ambulating. DISPOSITION Expected discharge to home. Family Medicine follow-up with Dr. Prado. Cardiology follow-up with Dr. Hassan. GI follow-up with Dr. Eaton. Vascular Surgery follow-up with Dr. Veliz. . Current Inpatient Medications: Current Inpatient Medications Medications (Trade) Dose Ordered Sig/Linda Route Start Time Stop Time Status Last Admin Dose Admin Ioversol (Optiray 320) 125 ml UD PRN IV 02/26/17 07:45 03/02/17 07:44 Acetaminophen (Tylenol Tab) 650 mg Q4H PRN PO 02/26/17 10:30 03/28/17 10:29 Ondansetron HCl (Zofran Inj) 4 mg Q6H PRN IV 02/26/17 10:30 03/28/17 10:29 Piperacillin Sod/ Tazobactam Sod (Consult) 1 ea UD PRN N/A 02/26/17 10:45 03/28/17 10:44 Piperacillin Sod/ Tazobactam Sod 4.5 gm/Dextrose 120 ml @ 30 mls/hr Q8H IV 02/26/17 20:00 03/08/17 13:59 02/28/17 04:07 30 MLS/HR Nicotine (Nicoderm Cq 21MG Patch) 1 patch QAM TD 02/27/17 11:15 03/29/17 11:14 02/28/17 07:54 1 PATCH Miscellaneous (Remove Nicoderm Patch) 1 ea HS N/A 02/27/17 21:00 03/29/17 20:59 Metoprolol Succinate (Toprol Xl Tab) 12.5 mg QAM PO 02/28/17 09:00 03/30/17 08:59 02/28/17 07:54 12.5 MG Atorvastatin Calcium (Lipitor Tab) 40 mg QAM PO 02/28/17 09:00 03/30/17 08:59 02/28/17 07:53 40 MG Lisinopril (Zestril Tab) 2.5 mg QAM PO 03/01/17 09:00 03/31/17 08:59
--- NOTE | 2017-03-01 05:43 | Discharge Summary ---
Discharge Summary Date of Service Mar 01, 2017. Discharge Summary Admission Date: Feb 26, 2017 at 10:21 Discharge Date: Feb 28, 2017 Discharge Disposition: Home Principal Diagnosis: syncope secondary to acute GI blood loss OTHER ACUTE / NEW DIAGNOSES: acute blood loss anemia abnormal echocardiogram (segmental wall motion abnormalities suggesting ischemic heart disease) abdominal aortic aneurysm (infrarenal, 5.[address]) carotid artery disease (mild plaque per duplex) colonic polyps (tubular adenomas + tubulovillous adenomas) . Secondary Diagnoses/Problems: Procedures: cardiac monitoring echocardiogram CT head CT abdomen and pelvis carotid duplex . Consultations: GI Cardiology Vascular Surgery . Medication Reconciliation New Medications: Amoxicillin & Pot Clavulanate (Augmentin 875-125 mg) 1 Tab Tab 1 TAB PO BID, #14 TAB Take with food. Aspirin (Ecotrin Low Strength) 81 Mg Tab 81 MG PO DAILY, #30 TAB No prescription necessary. Start on 03/07/17. Ferrous Sulfate (Ferrous Sulfate) 325 Mg Tab 325 MG PO BID, #60 TAB No prescription necessary. Nicotine (Nicoderm Cq 14MG Patch) 14 Mg/24 Hr Dis 1 PATCH TD DAILY, #1 BOX No prescription necessary. Use as directed. Atorvastatin (Atorvastatin Calcium) 40 Mg Tab 40 MG PO QAM, #30 TAB 5 Refills Lisinopril (Lisinopril) 2.5 Mg Tab 2.5 MG PO QAM, #30 TAB 5 Refills Metoprolol Succinate (Metoprolol Succinate ER) 25 Mg Tabcr 12.5 MG PO QAM, #15 TAB 5 Refills Admission Information HPI (per Admitting provider): 66 year old male who presents to the ED after a syncopal event at home. Patient recently established with primary care a couple of months ago after not being seen by a physician in nearly 20 years. He reports that his brother was recently diagnosed with colon cancer. Patient under went colonoscopy on 02/21. He had several polyps removed and clips placed. Patient reports that there was an abnormality noted on the heart monitor during the procedure and that his BP was very high. He is scheduled for a stress test tomorrow. Over the past couple of days patient reports lightheadedness and dizziness. Yesterday he reports a near syncopal event. He reports bright red bleeding with every bowel movement. He initially had loose stools however now are more formed. He has felt chilled but did not take his temperature. He has had a poor appetite and reports abdominal bloating. Denies abdominal pain. No chest pain. Patient has chronic exertional shortness of breath which he feels has progressively worsened over the past couple of months. He attributes it to weight gain and not working out. Today his heard a loud noise come from the bathroom. She found him on the floor. He opened his eyes and had tremors of the upper extremities. He then had some vomiting of a clear fluid. He was then brought to the ED for further evaluation. In the ER, patient's CXR is suggesting a bibasilar pneumonia. CT abd /pelves shows a fairly large AAA (newly diagnosed) and also possible injury to the transverse colon. WBC 15K, vitals are stable. Patient was given IVF, Vanco, and Cefepime. . Physical Exam (per Admitting): General Appearance: WD/WN, no apparent distress Head: normocephalic, atraumatic Eyes: normal inspection, EOMI, sclerae normal ENT: hearing grossly normal, + pertinent finding (mucous membranes dry ) Neck: supple, no JVD, no carotid bruits, trachea midline Respiratory/Chest: no respiratory distress, + crackles (faint, bibasilar ) Cardiovascular: regular rate, rhythm, no edema, normal peripheral pulses Abdomen/GI: normal bowel sounds, non tender, soft, no organomegaly, + distended Extremities/Musculoskelatal: normal inspection, no calf tenderness, normal capillary refill Neurologic/Psych: no motor/sensory deficits, alert, normal mood/affect, oriented x 3 Skin: normal color, warm/dry Hospital Course SYNCOPE Most likely secondary to orthostatic hypotension from GI blood loss. No significant arrhythmias on telemetry. ACUTE BLOOD LOSS ANEMIA GI bleeding after multiple polypectomies 02/21. Hgb 16 02/21 --> 12.2 at time of admission --> 8.9 today. No further gross bleeding. No need for transfusion at this time per guidelines. Start Fe replacement. Follow. COLONIC POLYPS Colonoscopy 02/21 demonstrated numerous colonic polyps, including large polyp in ascending colon that could not be resected. Path => tubular adenomas and tubulovillous adenomas. 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 There is a national shortage of metronidazole, so will utilize IV piperacillin / tazobactam --> oral amoxicillin / clavulanic acid. Outpatient follow-up with GI and General Surgery. ABNORMAL ECHO / SUSPECTED ISCHEMIC HEART DISEASE Echo demonstrates segmental wall motion abnormalities with normal overall LVEF. Strong family history of ischemic heart disease + dyslipidemia + smoking. Cardiology consulted. [place] best not to pursue stress testing at this time due to GI bleed with acute blood loss anemia. Started on metoprolol succinate 12.5 mg daily, lisinopril 2.5 mg daily, atorvastatin 40 mg daily. Start aspirin in 1 week if no further GI bleeding. Outpatient follow-up with Cardiology. AAA Bilobed infrarenal AAA noted on CT of abdomen and pelvis, 5.3 cm in greatest diameter. Asymptomatic. Vascular Surgery consulted. SMOKING Importance of smoking cessation discussed. Nicotine patch recommended. Given info on quitting. May be candidate for lung cancer screening (pack-year history ~ 20-30 years). Advised to discuss with PCP. VTE PROPHYLAXIS No anticoagulants due to GI bleed. SCD's. Ambulating. DISPOSITION Expected discharge to home. Family Medicine follow-up with Dr. Prado. Cardiology follow-up with Dr. Hassan. GI follow-up with Dr. Eaton. Vascular Surgery follow-up with Dr. Veliz. . Total time spent on discharge = 45 min. This includes examination of the patient, discharge planning, medication reconciliation, and communication with other providers. . Discharge Instructions Date of Service Feb 28, 2017. Admission Reason for Admission: passed out . Discharge Discharge Diagnosis / Problem: passed out, anemia, suspected heart disease, abdominal aortic aneurysm Discharge Goals Goal(s): Improve disease control Activity Recommendations Activity Limitations: as noted below (light activity, no strenuous exercise until otherwise instructed) Lifting Limitations: no more than 25 pounds . Instructions / Follow-Up Instructions / Follow-Up APPOINTMENTS: FAMILY MEDICINE 03/09/2017 10:40 AM Ernesto Prado MD CARDIOLOGY Dr. Mo [facility] Office will contact you with appointment. GASTROENTEROLOGY Dr. Eaton [facility] Office will contact you with appointment. VASCULAR SURGERY Dr. Veliz [facility] Office will contact you with appointment. OTHER INSTRUCTIONS: You probably passed out because of bleeding from colonoscopy with removal of polyps. Take ferrous sulfate (iron pills) twice a day to build up your blood count. Take amoxicillin / clavulanic acid (Augmentin) twice a day with food for possible infection from polyp removal. Echocardiogram (ultrasound of heart) suggests blockage in arteries with possible heart attack in the past. Please start the following medications: metoprolol succinate (Toprol XL) 12. 5 mg daily good for blood pressure, heart conditions, and vascular disease lisinopril (Prinivil or Zestril) 2.5 mg daily good for blood pressure, heart conditions, and vascular disease aspirin (Ecotrin) 81 mg daily helps prevent heart attacks and strokes DO NOT START UNTIL 03/07/17 atorvastatin (Lipitor) 40 mg daily lowers cholesterol, helps prevent heart attacks and strokes Dr. Eaton will arrange for follow-up colonoscopy and referral to General Surgery regarding the polyps in your colon. CT scan showed an abdominal aortic aneurysm that measured up to 5.[address] Veliz will arrange for follow-up. CT scan showed a cyst in the left kidney. CT of brain looked OK. No sign of stroke or other problems. Ultrasound of carotid arteries showed some mild hardening of the arteries, but no significant blockage. Some of your blood sugars were high, but you do not have diabetes. You should have your fasting blood sugars checked periodically. It is imperative that you quit smoking. Use nicotine patches as directed in product information, starting at 14 mg. Seek medical attention if you have: * temperature above 101 * chest pain or trouble breathing * abdominal pain, nausea, vomiting * diarrhea, dark stools or bloody stools * any unanswered questions or concerns Call 911 if symptoms are severe. Call if you have any questions or problems. My cell # is [phone]. You can also reach a [facility] hospitalist on duty at [facility] 24 hours a day by calling [phone]. Please take good care of yourself. Patric Dsouza . Current Hospital Diet Patient's current hospital diet: AHA Diet (Heart Healthy), Low Fiber Diet Discharge Diet Recommended Diet: AHA Diet (Heart Healthy), Low Fiber Diet (for 1 week) Procedures Procedures Performed: CT head CT abdomen and pelvis echocardiogram ultrasound of carotid arteries Pending Studies Studies pending at discharge: yes List of pending studies: outpatient stress test to be arranged repeat colonoscopy to be arranged Laboratory Results Hemoglobin A1c Test 02/26/17 07:34 Range/Units Estimated Average Glucose 117 mg/dl Hemoglobin A1c 5.7 H 4.5-5.6 % Last 24 Hours Test 02/28/17 05:25 White Blood Count 11.88 K/uL Red Blood Count 2.85 M/uL Hemoglobin 8.9 g/dL Hematocrit 27.3 % Mean Corpuscular Volume 95.8 fL Mean Corpuscular Hemoglobin 31.2 pg Mean Corpuscular Hemoglobin Concent 32.6 g/dl RDW Standard Deviation 52.5 fL RDW Coefficient of Variation 15.1 % Platelet Count 248 K/uL Mean Platelet Volume 11.1 fL Sodium Level 139 mmol/L Potassium Level 3.7 mmol/L Chloride Level 107 mmol/L Carbon Dioxide Level 26 mmol/L Anion Gap 5.0 mmol/L Blood Urea Nitrogen 16 mg/dl Creatinine 1.16 mg/dl Est Creatinine Clear Calc Drug Dose 91.5 ml/min Estimated GFR () 76.7 Estimated GFR (Non- 66.2 BUN/Creatinine Ratio 14.1 Random Glucose 96 mg/dl Calcium Level 8.0 mg/dl Medical Emergencies . Who to Call and When: Medical Emergencies: If at any time you feel your situation is an emergency, please call 911 immediately. . Non-Emergent Contact Non-Emergency issues call your: Primary Care Provider, Information Systems Technician, Transport Driver, Hospital Doctor . . "Provider Documentation" section prepared by Patric Dsouza. . VTE Core Measure Inpt VTE Proph given/why not?: SCD's . Additional Copies To Ernesto Prado M.D.; Romario Hassan M.D.; Abdon Veliz M.D.; Pati Eaton, DO
[2017-03-01] MEDS ORDERED: LISINOPRIL 2.5 MG TAB PO SCH (09:00)
== END 2017-02-28 16:30 | disposition home or self-care (01) | DRG 378 ==
LOC: EDBD 07:28 → C.EDB 07:29 → C.MED 10:21 → ENRESERV 11:03
PROVIDERS: ADMIT Hospitalist; ATTEND Hospitalist
DX: K92.2 Gastrointestinal hemorrhage, unspecified (principal); N17.9 Acute kidney failure, unspecified; I95.1 Orthostatic hypotension; F17.200 Nicotine dependence, unspecified, uncomplicated; I71.4 Abdominal aortic aneurysm, without rupture; D50.0 Iron deficiency anemia secondary to blood loss (chronic); I25.9 Chronic ischemic heart disease, unspecified

== ENCOUNTER → 2017-04-24 | Day surgery (SDC) | payer OTHER ==
[2017-04-19 10:15] VITALS: BMI 35.0
[~2017-04-24] VITALS: Ht 188 cm; Wt 125.0 kg
[~2017-04-24] MED LIST: FERR1TAB23 PO; LIDOCAINE HCL 2% 2 ML VIAL (20MG/ML) ONE; LPT40 PO; LSN25 PO; MIDAZOLAM HCL 1 MG/ML 2ML VIAL ONE; ONDANSETRON INJ 2 MG/ML 2 ML VIAL ONE; PROPOFOL IV EMULSION 10 MG/ML 20 ML VIAL IV ONE; SODIUM CHLORIDE 0.9% 500ML 500 ML IV ONE; TPRSR25 PO
[2017-04-24 12:54] VITALS: Ht 188 cm; Wt 125.0 kg
--- NOTE | 2017-04-24 13:02 | Endo History and Physical ---
History & Physical Date of Service: Apr 24, 2017. Chief Complaint: h/o polyps Referring Physician: Dr. Prado History of Present Illness h/o TVA with HGD Past Surgical History Hx Cardiac Surgery: No Hx Internal Defibrillator: No Hx Pacemaker: No Hx Abdominal Surgery: No Hx of Implantable Prosthesis: No Hx Post-Op Nausea and Vomiting: No Hx Cancer Surgery: No Hx Thoracic Surgery: No Hx Orthopedic: No Hx Urinary Tract Surgery: No Family History Polyp Social History Smoking Status: Former Smoker Hx Substance Use: No Hx Alcohol Use: Yes (OCCASIONALLY) Allergies Coded Allergies: No Known Allergies (Verified , 04/19/17) Current Medications Reported Home Medications Medications Dose Route/Sig Max Daily Dose Days Date Category Dose Instructions Iron (Ferrous Sulfate) 325 Mg Tab 1 Tab PO BID 04/19/17 Reported CURRENTLY ON HOLD FOR COLONOSCOPY Metoprolol Succinate ER (Metoprolol Succinate) 25 Mg Tabcr 12.5 Mg PO QAM 02/28/17 Rx Lisinopril 2.5 Mg Tab 2.5 Mg PO QAM 02/28/17 Rx Lipitor (Atorvastatin Calcium) 40 Mg Tab 40 Mg PO QAM 02/28/17 Rx Vital Signs Weight (Kilograms): 125.00 Height (Feet): 6 Height (Inches): 2 Physical Exam General Appearance: WD/WN, no apparent distress Assessment and Plan colonoscopy today
--- NOTE | 2017-04-24 14:57 | GI REPORT ---
Procedure Date: 04/24/2017 2:07 PM Procedure: Colonoscopy Indications: High risk colon cancer surveillance: Personal history of adenoma (10 mm or greater in size), High risk colon cancer surveillance: Personal history of adenoma with villous component, High risk colon cancer surveillance: Personal history of multiple (3 or more) adenomas; POOR PREP ON LAST COLONOSCOPY Medicines: Propofol per Anesthesia Complications: No immediate complications. Estimated blood loss: Minimal. Estimated Blood Loss: Estimated blood loss was minimal. Procedure: Pre-Anesthesia Assessment: - Prior to the procedure, a History and Physical was performed, and patient medications, allergies and sensitivities were reviewed. The patient's tolerance of previous anesthesia was reviewed. - The risks and benefits of the procedure and the sedation options and risks were discussed with the patient. All questions were answered and informed consent was obtained. - Patient identification and proposed procedure were verified prior to the procedure by the physician and the nurse. The procedure was verified in the pre-procedure area in the procedure room. - Mental Status Examination: alert and oriented. Airway Examination: normal oropharyngeal airway and neck mobility. Respiratory Examination: clear to auscultation. CV Examination: normal. Abdominal Examination: bowel sounds present, abdomen soft and non-tender, no masses or organomegaly noted. - ASA Grade Assessment: III - A patient with severe systemic disease. After I obtained informed consent, the scope was passed under direct vision. Throughout the procedure, the patient's blood pressure, pulse, and oxygen saturations were monitored continuously. The scope was introduced through the anus and advanced to the cecum, identified by appendiceal orifice and ileocecal valve. The colonoscopy was performed without difficulty. The patient tolerated the procedure well. The quality of the bowel preparation was good. Findings: The perianal and digital rectal examinations were normal. Pertinent negatives include normal sphincter tone and no palpable rectal lesions. A 8 mm polyp was found in the ascending colon. The polyp was sessile. The polyp was removed with a hot snare. Resection and retrieval were complete. Verification of patient identification for the specimen was done by the physician and nurse using the patient's name and date. Estimated blood loss was minimal. To prevent bleeding after the polypectomy, one hemostatic clip was successfully placed (MR conditional). There was no bleeding at the end of the procedure. A polypoid lesion was found in the ascending colon. The lesion was multi-lobulated. No bleeding was present. Biopsies were taken with a cold forceps for histology. Verification of patient identification for the specimen was done by the physician and nurse using the patient's name and date. Estimated blood loss was minimal. Six sessile polyps were found in the transverse colon. The polyps were 3 to 8 mm in size. These polyps were removed with a hot snare. Resection and retrieval were complete. Verification of patient identification for the specimen was done by the physician and nurse using the patient's name and date. Estimated blood loss was minimal. Three sessile polyps were found in the descending colon. The polyps were 3 to 6 mm in size. These polyps were removed with a cold snare. Resection and retrieval were complete. Verification of patient identification for the specimen was done by the physician and nurse using the patient's name and date. Estimated blood loss was minimal. A 9 mm polyp was found in the sigmoid colon. The polyp was pedunculated. The polyp was removed with a hot snare. Resection and retrieval were complete. Verification of patient identification for the specimen was done by the physician and nurse using the patient's name and date. Estimated blood loss was minimal. To prevent bleeding after the polypectomy, one hemostatic clip was successfully placed (MR conditional). There was no bleeding at the end of the procedure. Two sessile polyps were found in the sigmoid colon. The polyps were 4 to 7 mm in size. These polyps were removed with a hot snare. Resection and retrieval were complete. Verification of patient identification for the specimen was done by the physician and nurse using the patient's name and date. Estimated blood loss was minimal. Multiple small and large-mouthed diverticula were found in the sigmoid colon. The retroflexed view of the distal rectum and anal verge was normal and showed no anal or rectal abnormalities. Impression: - One 8 mm polyp in the ascending colon, removed with a hot snare. Resected and retrieved. Clip (MR conditional) was placed. - Rule out malignancy, polypoid lesion in the ascending colon. Biopsied. - Six 3 to 8 mm polyps in the transverse colon, removed with a hot snare. Resected and retrieved. - Three 3 to 6 mm polyps in the descending colon, removed with a cold snare. Resected and retrieved. - One 9 mm polyp in the sigmoid colon, removed with a hot snare. Resected and retrieved. Clip (MR conditional) was placed. - Two 4 to 7 mm polyps in the sigmoid colon, removed with a hot snare. Resected and retrieved. - Diverticulosis in the sigmoid colon. - The distal rectum and anal verge are normal on retroflexion view. Recommendation: - Await pathology results. - No aspirin, ibuprofen, naproxen, or other non-steroidal anti-inflammatory drugs for 10 days after polyp removal. - Refer to a surgeon at appointment to be scheduled. - Repeat colonoscopy for surveillance based on pathology results. - Return to primary care physician as previously scheduled. - Discharge patient to home. Pati Eaton D.O. Pati Eaton, 04/24/2017 2:57:14 PM This report has been signed electronically. Note Initiated On: 04/24/2017 2:07 PM I attest to the content of the Intraoperative Record and orders documented therein, exceptions below
--- NOTE | 2017-04-24 14:58 | Discharge Instructions ---
Endoscopy Patient Instructions Date / Procedure(s) Performed Apr 24, 2017. Colonoscopy Allergy Information Coded Allergies: No Known Allergies (Verified , 04/19/17) Discharge Date / Findings Apr 24, 2017. multiple polyps; polypoid lesion in the ascending colon Medication Instructions Restart Stopped Medication(s): see below No aspirin or NSAIDs (ie ibuprofen, naprosyn, etc) for 10 days Provider Instructions Activity Restrictions - No exercising or heavy lifting for 24 hours. - Do not drink alcohol the day of the procedure. - Do not drive a car or operate machinery until the day after the procedure. - Do not make any important decisions or sign important papers in 24 hours after the procedure. Following Day: - Return to full activity which may include returning to work/school. Diet Start your diet with liquids and light foods (jello, soup, juice, toast). Then eat your usual diet if not nauseated. Treatment For Common After Affects For mild abdominal pain, bloating, or excessive gas: - Rest - Eat lightly - Lie on right side Follow-Up Information Follow-up with DR. LONG as scheduled Anesthesia Information What You Should Know You have had a procedure that required some medicine to reduce anxiety and discomfort. This treatment is called moderate sedation. After receiving the treatment, you may be sleepy, but you will be able to breathe on your own. The effects of the treatment may last for several hours. Follow these instructions along with Activity/Diet recommendations noted above: * Do NOT do anything where dizziness or clumsiness would be dangerous. * Rest quietly at home today, then you can be up and about tomorrow. * Have a responsible person stay with you the rest of today. * You may have had an I.V. today. If so, you may take the dressing off later today. Recommendations Call your doctor if: * Trouble breathing * Continuous vomiting for more than 24 hours * Temperature above 101 degrees * Severe abdominal pain or bloating * Pain not relieved by pain medicine ordered * There is increased drainage or redness from any incision * A large amount of rectal bleeding greater than 2-3 tablespoons. (If you had a polyp/s removed or have hemorrhoids, a small amount of blood - from the rectum is to be expected.) * You have any unanswered questions or concerns. IN THE EVENT OF A SERIOUS EMERGENCY, GO TO THE NEAREST EMERGENCY ROOM Your discharge instructions were prepared by provider Pati Eaton. Patient Instructions Signature Page Tank Tucker Patient (or Guardian) Signature/Date: I have read and understand the instructions given to me by my caregivers. Caregiver/RN/Doctor Signature/Date: The above-named patient and/or guardian has received patient instructions on this date. + Original Patient Signature Page (only) stays with chart. Please make copy for patient.
--- NOTE | 2017-04-24 15:07 | Anesthesiology Progress Note ---
Anesthesia Post Op Note Date & Time Apr 24, 2017 at 15:07 Vital Signs Pain Intensity: 0 Vital Signs Past 12 Hours Date Time Temp Pulse Resp B/P (MAP) Pulse Ox O2 Delivery O2 Flow Rate FiO2 04/24/17 14:53 80 18 118/76 (90) 95 Room Air 04/24/17 13:02 36.4 83 20 159/108 (125) 97 Room Air Notes Mental Status: alert / awake / arousable, participated in evaluation Pt Amnestic to Procedure: Yes Nausea / Vomiting: adequately controlled Pain: adequately controlled Airway Patency, RR, SpO2: stable & adequate BP & HR: stable & adequate Hydration State: stable & adequate Anesthetic Complications: no major complications apparent
[2017-04-24 15:23] VITALS: PULSE 62; O2SAT 97
[2017-04-24 15:40] VITALS: BP 158/91
== END | disposition home or self-care (01) ==
LOC: C.GI 12:45
PROVIDERS: ATTEND Internal Medicine
DX: Z12.11 Encounter for screening for malignant neoplasm of colon (principal); D12.2 Benign neoplasm of ascending colon; D12.3 Benign neoplasm of transverse colon; D12.5 Benign neoplasm of sigmoid colon; D12.4 Benign neoplasm of descending colon; K57.30 Diverticulosis of large intestine without perforation or abscess without bleeding; I10 Essential (primary) hypertension; E78.5 Hyperlipidemia, unspecified; I71.4 Abdominal aortic aneurysm, without rupture; M19.90 Unspecified osteoarthritis, unspecified site; Z86.010 Personal history of colon polyps; Z87.891 Personal history of nicotine dependence; Z90.89 Acquired absence of other organs

== ENCOUNTER → 2017-05-08 | Day surgery (SDC) | payer OTHER ==
[~2017-05-08] VITALS: Ht 188 cm; Wt 125.0 kg
[~2017-05-08] MED LIST changes: +ACETAMINOPHEN 325 MG TAB PO PRN; +ASPI81TA28 PO; +ATROPINE SULFATE 0.1 MG/ML 5ML SYR IV PRN; +FENTANYL CITRATE INJ 50 MCG/1 ML 2 ML VIAL ONE; +HEPARIN SOD (PORCINE) 1000 UNIT/ML 10 ML VIAL ONE; -LIDOCAINE HCL 2% 2 ML VIAL (20MG/ML) ONE; +NITROGLYCERIN 0.4 MG SL PER TAB CHARGE SL PRN; +NITROGLYCERIN/D5W 100MCG/ML 20ML SYR ONE; +NiCARDipine HCL INJ 2.5 MG/ML 10 ML AMP ONE; -ONDANSETRON INJ 2 MG/ML 2 ML VIAL ONE; -PROPOFOL IV EMULSION 10 MG/ML 20 ML VIAL IV ONE; +SODIUM CHLORIDE 0.9% 1000ML 1,000 ML IV SCH; +SODIUM CHLORIDE 0.9% 1000ML 250 ML IV PRN; -SODIUM CHLORIDE 0.9% 500ML 500 ML IV ONE
[2017-05-08 07:37] VITALS: BP 166/97; PULSE 82; TEMP 36.5; O2SAT 96; Ht 188 cm; Wt 125.0 kg
--- NOTE | 2017-05-08 09:17 | History & Physical Bridge Note ---
H&P Re-Evaluation Bridge Note: I have examined the patient, reviewed the History & Physical and in the interval since the performance of the History & Physical I have noted the following changes of clinical significance: No changes noted
--- NOTE | 2017-05-08 09:18 | Pre Sedation Assessment ---
Pre Sedation Assessment General Date of Sedation: May 08, 2017. Vital Signs Past 12 Hours Date Time Temp Pulse Resp B/P (MAP) Pulse Ox O2 Delivery O2 Flow Rate FiO2 05/08/17 09:15 72 16 165/105 (125) 98 Room Air 05/08/17 09:11 60 16 174/112 (132) 98 Room Air 05/08/17 07:37 36.5 82 16 166/97 (120) 96 Room Air Review Cardiovascular: regular rate, rhythm Lungs: chest non-tender, lungs clear Pre-Sedation Airway Assessment Smoking Status: Former Smoker Hx of Sleep Apnea: No Short Thick Neck: Yes Thyro-mental Distance: > 3 Finger Breadths Oral Cavity: WNL Mallampati Classification: Class II ASA Classification: Class III NPO Status Date of Last Intake of Fluids: May 07, 2017 Time of Last Intake of Fluids: 2199 Date of Last Intake of Solids: May 07, 2017 Time of Last Intake of Solids: 2199 Procedure Planning Contraindications for Sedation: None Current Medications Reviewed: Yes Notes The planned sedation has been discussed with the patient. Informed Consent was obtained. I have identified the patient, determined the appropriateness of sedation and have assessed the patient immediately prior to the procedure. All medicine(s) and interventions are by my order.
--- NOTE | 2017-05-08 09:46 | [facility] Post Operative Brief Note ---
Preliminary Procedure Note Procedure Date May 08, 2017. 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 Large type 3 supplying collaterals to RCA Ramus large with long 50% proximal stenosis LCx Large OM with 99% serial proximal stenoses with competing distal flow via proximal RCA collateral RCA 100% mid vessel occlusion LV Inferior infarct EF 45 % Recommendations CABG Specimens None Fluids (cc crystalloids) 115 Anesthesia Start 0836 Stop 0911 Yasmany Ashraf RN Procedural Complication(s) None Disposition Rectifying Attendant Holding/Recovery
--- NOTE | 2017-05-08 11:49 | Discharge Instructions ---
Discharge Instructions Procedure Procedure Date: May 08, 2017. Reason for Visit: Abnormal Stress Test *Waiver*. Discharge Discharge Date: May 08, 2017. Discharge Diagnosis: Three vessel coronary artery disease Last Recorded Wt (Kilograms): 125 Anesthesia Post Anesthesia Instructions: If you have had General Anesthesia or IV Sedation: * Do not drive today. * Resume driving when surgeon permits. * Do not make important decisions or sign legal documents today. * Call surgeon for: 1. Temperature elevations greater than 101 degrees F. 2. Uncontrollable pain. 3. Excessive bleeding. 4. Persistent nausea and vomiting. 5. Medication intolerance (nausea, vomiting or rash). * For nausea and vomiting use only clear liquids such as: tea, soda, bouillon until nausea subsides, then gradually increase diet as tolerated. * If you have any concerns or questions, call your surgeon's office. If physician is unavailable and it is an emergency, call 911 or go to the nearest emergency room. Instructions Activity Recommendations: limitations as noted below Recommended Home Diet: resume previous diet Allergies: Coded Allergies: No Known Allergies (Verified , 04/19/17) Provider Instructions ACTIVITY RECOMMENDATIONS: Excess manipulation of the wrist should be avoided for the next 24-48 hours. * No lifting over 2 pounds (approximately a 1/2 gallon of milk) with the utilized arm for 24 hours. * No strenuous activity such as bowling or tennis for 3 days. * Keep the site of the procedure covered with a bandage for 24 hours. *You may shower the day after the procedure. Do not take a tub bath or submerge the puncture site in water for the next 3 days. *Do not operate any motorized equipment for 3 days. SPECIAL CARE INSTRUCTIONS: The site may be slightly bruised and sore following your procedure. Should any of the following occur, contact the Dr. who performed your procedure. 1. Redness/inflammation, swelling, chills, or fever, or colored drainage at procedure site within 3-7 days after your procedure. 2. Coldness, discoloration, ongoing numbness, severe pain, or swelling. Expect mild tingling of hand and tenderness at the puncture site for up to three days. If this persists beyond three days, or other symptoms develop, notify the Dr. who performed your procedure. BLEEDING: If the procedure site on your wrist begins to bleed, do not panic 1. Place 1 or 2 fingers firmly just slightly above the insertion site to stop the bleeding. You may be able to feel your pulse as you hold pressure. 2. Lift your finger after 5 minutes to see if the bleeding has stopped. 3. Once the bleeding has stopped, gently wipe the wrist area clean with a bandage. * If the bleeding from your wrist does not stop after 10 minutes, or if there is a large amount of bleeding or spurting, call 911 (do not drive yourself to the hospital). SKIN IRRITATION: * You may experience some redness and/or swelling in the area where radiation was administered. If any skin irritation occurs, please contact your family physician. FOLLOW UP VISIT: Keep any scheduled doctor appointments. Follow Up Follow-up with: Dr Castaneda @ [facility] Recommendations: Call your doctor if: * Temperature above 101 degrees * Pain not relieved by pain medicine ordered * There is increased drainage or redness from any incision * You have any unanswered questions or concerns. Your Doctors Instructions noted above were prepared by provider Romario Hassan. Patient Signature Section: Patient Instructions Signature Page Tank Tucker Patient (or Guardian) Signature/Date: I have read and understand the instructions given to me by my caregivers. Caregiver/RN/Doctor Signature/Date: The above-named patient and/or guardian has received patient instructions on this date. + Original Patient Signature Page (only) stays with chart. Please make copy for patient.
[2017-05-08 12:00] VITALS: BP 135/78; PULSE 68; O2SAT 98
--- NOTE | 2017-05-08 14:21 | CARDIAC CATH REPORT ---
INDICATIONS: Ischemic cardiomyopathy, abnormal stress testing. PROCEDURE: Left heart catheterization, coronary LV angiography. BRIEF CARDIAC HISTORY: The patient is a 67-year-old male, recently identified in the setting of acute hospitalization for GI bleeding post-colonoscopy to have evidence of segmental wall motion abnormalities consistent with ischemic heart disease. Subsequent stress testing was suggestive of 3-vessel disease with flat response and no improvement in LV function. Anticipates upcoming abdominal surgery for resection of a hyperplastic polyp and future surgery in the next 2 years for repair of abdominal aortic aneurysm, not approachable via catheter based device. ACCESS: Right radial artery. CATHETERS: A 6-Polish long [place] sheath, 5-Polish brachial 3.5, 5-Polish straight pigtail. CONTRAST: Nonionic, 137 mL IV FLUIDS: 115 mL normal saline. SEDATION: Start time 8:36, end 9:11; cigar making machine supervisor, Rodrigo Ashraf RN; Versed 1 mg IV, fentanyl 12.5 mcg IV. MEDICATIONS: Local infiltration of access site was performed using 1% lidocaine. After arterial sheath was inserted, intra-arterial injection of 250 mcg of nicardipine was given as well as prior to sheath removal. After central access gained via catheter, 5000 units of IV heparin was administered. COMPLICATIONS: None. RADIATION EXPOSURE: 4.1 minutes of fluoroscopy time, 2190 milligrays, DAP score [id number]. RESULTS: CORONARY ANGIOGRAPHY: LEFT MAIN: The left main is long, moderately calcified. It trifurcates to give rise to left anterior descending and moderately large ramus intermedius in the left circumflex. There is a 20% distal taper of the left main. LEFT ANTERIOR DESCENDING: Left anterior descending is a very large type 3 vessel and gives rise to 2 large septal branches at the end of its proximal third, a small diagonal branch at the end of its proximal third, then courses as a large caliber vessel well beyond the apex. Within the left anterior descending, there is a long area of diffuse disease in its proximal third, 60-70% severity with an ulcerated aneurysmal segment and pre and post-stenotic dilatation: Left anterior descending supplies collateral flow via septal branches to the right coronary artery. RAMUS INTERMEDIUS: Ramus intermedius is a moderately large vessel and has a long 50% narrowing in its proximal portion. LEFT CIRCUMFLEX: Left circumflex is nondominant in distribution. It does give rise to a large obtuse marginal and a small posterolateral branch. The left circumflex is diffusely diseased and the obtuse marginal has subtotal stenosis of 99% serially. The vessel fills with competitive flow to reach near the apex. The distal vessel fills via right to left collateral flow from the right atrial branch. RIGHT CORONARY ARTERY: The right coronary artery is dominant in distribution and gives rise to a conus in the sinoatrial branch and has diffuse disease and is occluded at the end of its proximal third. The distal vessel fills retrograde via left to right collateral flow from the left anterior descending. LEFT VENTRICULAR ANGIOGRAPHY: The left ventricle was nondilated. There is a focal area of inferior akinesis and scar with mild to moderate left ventricular dysfunction, EF of 45%. HEMODYNAMICS: Initial aortic root pressure was 155/98 with a mean of 122. LV pressure following coronary angiography was 135/2 and LVEDP of 6. On pullback to the aortic root, there was no transaortic valve gradient. Closing aortic root pressure was 145/91 with a mean of 115. IMPRESSION: 1. Right dominant coronary anatomy. 2. Severe 3-vessel coronary artery disease. 3. Mild to moderate left ventricular dysfunction with focal inferior scar. RECOMMENDATIONS: Given 3-vessel disease and LV dysfunction as well as anticipated bowel and aortic aneurysm surgeries, elective, would recommend surgical revascularization. Discussed in detail with the patient and family and surgical appointment scheduled.
== END | disposition home or self-care (01) ==
LOC: C.CATH 07:26
PROVIDERS: ATTEND Internal Medicine Cardiovascular Disease
DX: I25.5 Ischemic cardiomyopathy (principal); I25.10 Atherosclerotic heart disease of native coronary artery without angina pectoris; I71.4 Abdominal aortic aneurysm, without rupture; I10 Essential (primary) hypertension; E78.5 Hyperlipidemia, unspecified; Z79.82 Long term (current) use of aspirin; Z87.891 Personal history of nicotine dependence; Z82.49 Family history of ischemic heart disease and other diseases of the circulatory system